=== PATIENT | female | born 2000 | race Caucasian/White ===

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

== ENCOUNTER → 2020-02-04 | Outpatient (CLI) | payer MEDICAID ==
--- NOTE | 2020-02-04 11:23 | Diagnostic Imaging Report ---
INDICATION: Palpable lumps, right breast. Sonographic interrogation of all 4 quadrants of the right breast and retroareolar region was performed. No sonographic abnormality is identified. No solid or cystic mass is detected. IMPRESSION: BI-RADS Category 1 No sonographic abnormality is identified. Due to patient's young age, mammography was not performed. Continued close clinical and self breast exams recommended to confirm stability of the areas of palpable abnormality. ACR BI-RADS Category 1: Negative. Result letter will be mailed to the patient. Note: At least 10% of breast cancer is not imaged by mammography. Dictated by: Dictated on workstation # [id number]
== END ==
LOC: RAD 09:56
PROVIDERS: ATTEND Surgery
DX: N63.10 Unspecified lump in the right breast, unspecified quadrant (principal)
CPT/HCPCS: 76641

== ENCOUNTER 2020-09-05 19:08 | Emergency (ER) | payer MEDICAID ==
[~2020-09-05] VITALS: Ht 177.8 cm; Wt 63.5 kg
[2020-09-05 19:26] LABS: BILIRUBIN,URINE NEGATIVE (NEGATIVE); CLARITY,URINE SL CLOUDY; COLOR,URINE YELLOW; GLUCOSE, URINE (UA) NEGATIVE (NEGATIVE); KETONES,URINE NEGATIVE (NEGATIVE); LEUKOCYTE ESTERASE ,URINE 3+ (NEGATIVE); NITRITE,URINE NEGATIVE (NEGATIVE); PROTEIN,URINE NEGATIVE (NEGATIVE)
--- NOTE | 2020-09-05 19:32 | ED GU-Female ---
General Chief Complaint: - Urinary Stated Complaint: LOWER BACK/KIDNEY PAIN Nursing Triage Note: c/o bilateral lower back pain x2 days. reports pain worse today x2hrs. c/o pain/burning after urination. Source: patient Exam Limitations: no limitations History of Present Illness Date Seen by Provider: Sep 05, 2020 Time Seen by Provider: 19:15 Initial Comments This is a well-appearing 19 yo female who presents to the ER with complaints of bilateral flank pain x2 days. States she was recently diagnosed with a slight UTI and given prescription for Macrobid today. State she is concerned something more severe is occurring. Denies fever, chills, cough, shortness of breath, vomiting, abdominal pain. Has some slight nausea. LMP several months ago, currently on DEPO inj. Allergies and Home Medications Allergies Coded Allergies: No Known Drug Allergies (Unverified , 11/10/16) Patient Home Medication List Home Medication List Reviewed: Yes Review of Systems Review of Systems Constitutional: no symptoms reported EENTM: no symptoms reported Respiratory: no symptoms reported Cardiovascular: no symptoms reported Gastrointestinal: see HPI Genitourinary: see HPI : No Musculoskeletal: no symptoms reported Skin: no symptoms reported Psychiatric/Neurological: No Symptoms Reported Endocrine: No Symptoms Reported Hematologic/Lymphatic: No Symptoms Reported Past Pbrrios-Ctqjgd-Cvnnbd Hx Patient Social History Alcohol Use: Denies Use Number of Drinks Today: AA Alcohol Beverage of Choice: Beer Type Used: Electronic/Vapor 2nd Hand Smoke Exposure: No Recent Infectious Disease Expo: No Recent Hopitalizations: No Immunizations Up To Date Tetanus Booster (TDap): Less than 5yrs PED Vaccines UTD: Yes Seasonal Allergies Seasonal Allergies: Yes Past Medical History Surgeries: Yes (DENTAL) Adenoidectomy, Ear Surgery, Tonsillectomy Respiratory: No Cardiac: Yes High Cholesterol Neurological: No Reproductive Disorders: No Genitourinary: No Gastrointestinal: No Musculoskeletal: No Endocrine: No HEENT: No Cancer: No Psychosocial: Yes Anxiety Integumentary: No Blood Disorders: Yes (positive IVA screen) Family Medical History No Pertinent Family Hx, DVT/PE Physical Exam Vital Signs Vital Signs - First Documented 09/05/20 19:13 Temp 37.0 Pulse 93 Resp 18 B/P (MAP) 115/78 O2 Delivery Room Air Capillary Refill : Height, Weight, BMI Height: 5'9.00" Weight: 150lbs. 6.0oz. 68.729303vm; 20.00 BMI Method:Stated General Appearance: WD/WN, no apparent distress HEENT: PERRL/EOMI, normal ENT inspection Neck: full range of motion, normal inspection Cardiovascular: regular rate, rhythm, no murmur Respiratory: lungs clear, normal breath sounds Gastrointestinal: normal bowel sounds, non tender, soft; No hernia Back: CVA tenderness (R), CVA tenderness (L) Extremities: normal range of motion, non-tender, normal inspection, normal capillary refill Neurologic/Psychiatric: no motor/sensory deficits, alert, normal mood/affect, oriented x 3 Skin: normal color, warm/dry Progress/Results/Core Measures Suspected Sepsis SIRS Temperature: Pulse: Respiratory Rate: Laboratory Tests 09/05/20 20:02: White Blood Count 10.3 Blood Pressure / Mean: Laboratory Tests 09/05/20 20:02: Creatinine 0.84, Platelet Count 227, Total Bilirubin 0.4 Results/Orders Lab Results Laboratory Tests Test 09/05/20 19:16 09/05/20 20:02 Range/Units Urine Color YELLOW Urine Clarity SL CLOUDY Urine pH 7.0 5-9 Urine Specific [place] 1.015 L 1.016-1.022 Urine Protein NEGATIVE NEGATIVE Urine Glucose (UA) NEGATIVE NEGATIVE Urine Ketones NEGATIVE NEGATIVE Urine Nitrite NEGATIVE NEGATIVE Urine Bilirubin NEGATIVE NEGATIVE Urine Urobilinogen 0.2 < = 1.0 MG/DL Urine Leukocyte Esterase 3+ H NEGATIVE Urine RBC (Auto) 1+ H NEGATIVE Urine RBC 2-5 H /HPF Urine WBC 10-25 H /HPF Urine Squamous Epithelial Cells 0-2 /HPF Urine Crystals NONE /LPF Urine Bacteria TRACE /HPF Urine Casts NONE /LPF Urine Mucus NEGATIVE /LPF Urine Culture Indicated YES White Blood Count 10.3 4.3-11.0 10^3/uL Red Blood Count 4.60 3.80-5.11 10^6/uL Hemoglobin 13.7 11.5-16.0 g/dL Hematocrit 41 35-52 % Mean Corpuscular Volume 88 80-99 fL Mean Corpuscular Hemoglobin 30 25-34 pg Mean Corpuscular Hemoglobin Concent 34 32-36 g/dL Red Cell Distribution Width 12.7 10.0-14.5 % Platelet Count 227 130-400 10^3/uL Mean Platelet Volume 9.9 9.0-12.2 fL Immature Granulocyte % (Auto) 0 % Neutrophils (%) (Auto) 62 42-75 % Lymphocytes (%) (Auto) 28 12-44 % Monocytes (%) (Auto) 9 0-12 % Eosinophils (%) (Auto) 1 0-10 % Basophils (%) (Auto) 0 0-10 % Neutrophils # (Auto) 6.3 1.8-7.8 10^3/uL Lymphocytes # (Auto) 2.8 1.0-4.0 10^3/uL Monocytes # (Auto) 0.9 0.0-1.0 10^3/uL Eosinophils # (Auto) 0.1 0.0-0.3 10^3/uL Basophils # (Auto) 0.0 0.0-0.1 10^3/uL Immature Granulocyte # (Auto) 0.0 0.0-0.1 10^3/uL Sodium Level 139 135-145 MMOL/L Potassium Level 3.5 L 3.6-5.0 MMOL/L Chloride Level 108 H 98-107 MMOL/L Carbon Dioxide Level 23 21-32 MMOL/L Anion Gap 8 5-14 MMOL/L Blood Urea Nitrogen 10 7-18 MG/DL Creatinine 0.84 0.60-1.30 MG/DL Estimat Glomerular Filtration Rate > 60 BUN/Creatinine Ratio 12 Glucose Level 98 70-105 MG/DL Calcium Level 9.0 8.5-10.1 MG/DL Corrected Calcium 8.6 8.5-10.1 MG/DL Total Bilirubin 0.4 0.1-1.0 MG/DL Aspartate Amino Transf (AST/SGOT) 18 5-34 U/L Alanine Aminotransferase (ALT/SGPT) 25 0-55 U/L Alkaline Phosphatase 43 40-136 U/L Total Protein 7.3 6.4-8.2 GM/DL Albumin 4.5 3.2-4.5 GM/DL Micro Results Microbiology 09/05/20 Urine Culture - Final, Complete Gram Pos Mixed Bacterial Arabella My Orders Orders - CARLOS A HAWKINS TRAINING AND DEVELOPMENT SPECIALIST Ua Culture If Indicated (09/05/20 19:09) Urine Bedside (09/05/20 19:09) Ed Iv/Invasive Line Start (09/05/20 19:29) Cbc With Automated Diff (09/05/20 19:29) Comprehensive Metabolic Panel (09/05/20 19:29) Ct Abdomen/Pelvis Wo (09/05/20 19:29) Ketorolac Injection (Toradol Injection) (09/05/20 19:30) Urine Culture (09/05/20 19:16) Ceftriaxone For Im Use (Rocephin For Im (09/05/20 20:15) Lidocaine 1% Inj 20 Ml (Xylocaine 1% Inj (09/05/20 20:15) Medications Given in ED Vital Signs/I&O Capillary Refill : Progress Note : Progress Note Pt. examined and in no acute distress. Based on history, this very well could represent a bilat. kidney infection. Bilat. kidney stones unlikely. Will order basic labs and CT abd/pelvis w/o contrast. Orders given for Toradol IV, declined stating her pain is tolerable. UA indicative of UTI. CT abd/pelvis neg for acute findings. Given Rocephin 1gm inj. in ED and to continue antibiotics as previously directed. Reviewed discharge POC and she is agreeable with plan. Diagnostic Imaging Diagonstic Imaging: CT Plain Films/CT/US/NM/MRI: abdomen, pelvis Comments NAME: EKATERINA WALLACE John [facility] REC#: [id number] PT STATUS: REG ER : 2000 PHYSICIAN: CARLOS A HAWKINS TRAINING AND DEVELOPMENT SPECIALIST ADMIT DATE: 09/05/20/ER Signed Date of Exam:09/05/20 CT ABDOMEN/PELVIS WO PROCEDURE: CT abdomen and pelvis without contrast. TECHNIQUE: Multiple contiguous axial images were obtained through the abdomen and pelvis without the use of intravenous contrast. Auto Exposure Controls were utilized during the CT exam to meet ALARA standards for radiation dose reduction. INDICATION: Lower back pain for 2 days. Burning after urination. COMPARISON: 05/05/2019. FINDINGS: The heart is unremarkable. The lung bases are clear. The liver, spleen, pancreas, adrenal glands, and kidneys have a normal appearance. The gallbladder is decompressed. There is no pathologically enlarged mesenteric or retroperitoneal adenopathy. The bowel loops are nondilated. There is no free fluid or free air. No acute osseous abnormalities. The urinary bladder is nondistended. No bladder calculi are present. There is no free air, loculated collection, or adenopathy in the pelvis. IMPRESSION: 1. No acute abnormalities are seen in the abdomen and pelvis. No evidence of renal calculi or hydronephrosis. No bowel obstruction. No free fluid or free air. Dictated by: Dictated on workstation # [id number] Dict: 09/05/201947 Trans: 09/05/201958 [place] [id number] Interpreted by: NICKOLAS LOVE DO Electronically signed by: NICKOLAS LOVE DO 09/05/201958 Reviewed: Reviewed by Me Departure Impression Primary Impression: Urinary tract infection Disposition: 01 HOME, SELF-CARE Condition: Improved Departure-Patient Inst. Decision time for Depature: 20:28 Referrals: ION AVILA MD (PCP/Family) Primary Care Physician Patient Instructions: Urinary Tract Infection, Adult (DC) Add. Discharge Instructions: Plan: 1. Discharge home. 2. Drink plenty of water. 3. Take antibiotics as directed and complete full course as directed. 4. Tylenol/Ibuprofen as needed per package for pain. 5. Return to ER for any new or concerning symptoms. All discharge instructions reviewed with patient and/or family. Voiced understanding. CARLOS A HAWKINS TRAINING AND DEVELOPMENT SPECIALIST Sep 05, 2020 19:32
[2020-09-05 19:36] LABS: BACTERIA,URINE TRACE /HPF; SQUAMOUS EPITHELIAL CELL,UR 0-2 /HPF
[2020-09-05] MEDS: KETOROLAC 30 MG/ML VIAL IVP ONE ×2 (19:36→20:04)
--- NOTE | 2020-09-05 19:56 | Diagnostic Imaging Report ---
PROCEDURE: CT abdomen and pelvis without contrast. TECHNIQUE: Multiple contiguous axial images were obtained through the abdomen and pelvis without the use of intravenous contrast. Auto Exposure Controls were utilized during the CT exam to meet ALARA standards for radiation dose reduction. INDICATION: Lower back pain for 2 days. Burning after urination. COMPARISON: 05/05/2019. FINDINGS: The heart is unremarkable. The lung bases are clear. The liver, spleen, pancreas, adrenal glands, and kidneys have a normal appearance. The gallbladder is decompressed. There is no pathologically enlarged mesenteric or retroperitoneal adenopathy. The bowel loops are nondilated. There is no free fluid or free air. No acute osseous abnormalities. The urinary bladder is nondistended. No bladder calculi are present. There is no free air, loculated collection, or adenopathy in the pelvis. IMPRESSION: 1. No acute abnormalities are seen in the abdomen and pelvis. No evidence of renal calculi or hydronephrosis. No bowel obstruction. No free fluid or free air. Dictated by: Dictated on workstation # [id number]
[2020-09-05 20:08] LABS: BASOPHILS % (AUTO) 0 % (0-10); EOSINOPHILS # (AUTO) 0.1 10^3/uL (0.0-0.3); EOSINOPHILS % (AUTO) 1 % (0-10); HEMATOCRIT 41 % (35-52); HEMOGLOBIN 13.7 g/dL (11.5-16.0); LYMPHOCYTES # (AUTO) 2.8 10^3/uL (1.0-4.0); LYMPHOCYTES % (AUTO) 28 % (12-44); MEAN CORPUSCULAR HEMOGLOBIN 30 pg (25-34); MEAN CORPUSCULAR HGB CONC 34 g/dL (32-36); MEAN CORPUSCULAR VOLUME 88 fL (80-99); MEAN PLATELET VOLUME 9.9 fL (9.0-12.2); MONOCYTES # (AUTO) 0.9 10^3/uL (0.0-1.0); MONOCYTES % (AUTO) 9 % (0-12); NEUTROPHILS # (AUTO) 6.3 10^3/uL (1.8-7.8); NEUTROPHILS % (AUTO) 62 % (42-75); PLATELET COUNT 227 10^3/uL (130-400); WHITE BLOOD COUNT 10.3 10^3/uL (4.3-11.0)
[2020-09-05] MEDS ORDERED: cefTRIAXone 1,000 MG/2.86 ml vial (IM ONLY) IM ONE (20:15)
[2020-09-05] MEDS ORDERED: LIDOCAINE 1% INJ 20 ML 20 ML VIAL INJ ONE (20:15)
[2020-09-05 20:29] LABS: ALBUMIN 4.5 GM/DL (3.2-4.5); CHLORIDE 108 MMOL/L (98-107); POTASSIUM 3.5 MMOL/L (3.6-5.0); SODIUM 139 MMOL/L (135-145)
[2020-09-05 20:31] LABS: GLUCOSE 98 MG/DL (70-105); TOTAL PROTEIN 7.3 GM/DL (6.4-8.2)
[2020-09-05 20:32] LABS: CARBON DIOXIDE 23 MMOL/L (21-32)
[2020-09-05 20:33] LABS: BILIRUBIN,TOTAL 0.4 MG/DL (0.1-1.0)
[2020-09-05 20:35] LABS: ALKALINE PHOSPHATASE 43 U/L (40-136); CREATININE SERUM 0.84 MG/DL (0.60-1.30); GFR ESTIMATED > 60
[2020-09-05 20:36] LABS: BUN/CREATININE RATIO 12
[2020-09-05 20:38] LABS: ALANINE AMINOTRANSFERASE 25 U/L (0-55)
== END 2020-09-05 20:31 | disposition home or self-care (01) ==
LOC: EDUNIT# 19:08 → ER 19:09
DX: N39.0 Urinary tract infection, site not specified (principal)
CPT/HCPCS: 36415; 74176; 80053; 81000; 84703; 85025; 87088

== ENCOUNTER 2020-09-17 13:57 | Emergency (ER) | payer MEDICAID ==
[~2020-09-17] VITALS: Ht 177 cm; Wt 63.5 kg
--- NOTE | 2020-09-17 14:32 | ED General ---
General Chief Complaint: General Problems/Pain Stated Complaint: LOW BLOOD SUGAR Nursing Triage Note: Patient ambulatory to ER with c/o low blood sugar this morning. Pt states she felt like it was low but did not check it. She drank orange juice and states she then checked it and it read 116. She states she now has diarrhea. Nursing Sepsis Screen: No Definite Risk Source of Information: Patient Exam Limitations: No Limitations (LEANDRA SILVER,) History of Present Illness Date Seen by Provider: Sep 17, 2020 Time Seen by Provider: 14:27 Initial Comments Ms. Taveras is a 20-year-old female who presented to the [facility] ED for concerns regarding her blood sugar. She states this am around 11 she felt it "crashing" and after drinking an entire glass of OJ and some grapes, it did not increase past 116. She also was having blurred vision and generalized weakness at that time. She states her PCP has told her he believes she overproduces insulin but no formal diagnosis has been made. She denies fevers/chills, chest pain, shortness of breath, nausea, vomiting, difficulties with urination, new rashes. She does admit to headaches yesterday but that have now resolved. Patient also recently received antibiotics for UTI, symptoms have now resolved. Timing/Duration: 1 Day Severity: Mild (LEANDRA SILVER,) Timing/Duration: 1 Day, Other (Chronic for years but worse today) Severity: Mild Associated Systoms: No Cough, No Fever/Chills; Nausea/Vomiting; No Shortness of Air; Weakness (MIN SANCHEZ MD) Allergies and Home Medications Allergies Coded Allergies: No Known Drug Allergies (Unverified , 11/10/16) Patient Home Medication List Home Medication List Reviewed: Yes (LEANDRA SILVER,) Home Medication List Reviewed: Yes (MIN SANCHEZ MD) Review of Systems Review of Systems Constitutional: No fever; weakness EENTM: blurred vision Respiratory: No cough, No short of breath Cardiovascular: No chest pain Gastrointestinal: diarrhea; No nausea, No vomiting Genitourinary: No dysuria, No frequency Musculoskeletal: No joint pain, No muscle pain Skin: No dryness, No rash Psychiatric/Neurological: Anxiety, Headache Hematologic/Lymphatic: No Symptoms Reported Immunological/Allergic: no symptoms reported (LEANDRA SILVER,) Constitutional: No fever; weakness Respiratory: No cough, No short of breath Gastrointestinal: No abdominal pain; diarrhea, nausea; No vomiting Genitourinary: no symptoms reported Psychiatric/Neurological: Anxiety, Weakness (MIN SANCHEZ MD) All Other Systems Reviewed Negative Unless Noted: Yes (MIN SANCHEZ MD) Past Wtiklej-Zprqmz-Nprklc Hx Past Med/Social Hx: Reviewed Nursing Past Med/Soc Hx (MIN SANCHEZ MD) Patient Social History Alcohol Use: Occasionally Uses Number of Drinks Today: AA Alcohol Beverage of Choice: Beer Smoking Status: Current Everyday Smoker Type Used: Electronic/Vapor 2nd Hand Smoke Exposure: No Recent Infectious Disease Expo: No Recent Hopitalizations: No (LEANDRA SILVER) Immunizations Up To Date Tetanus Booster (TDap): Less than 5yrs PED Vaccines UTD: Yes (LEANDRA SILVER) Seasonal Allergies Seasonal Allergies: Yes (LEANDRA SILVER) Past Medical History Surgeries: Yes (DENTAL) Adenoidectomy, Ear Surgery, Tonsillectomy Respiratory: No Cardiac: Yes High Cholesterol Neurological: No Reproductive Disorders: No Genitourinary: No Gastrointestinal: No Musculoskeletal: No Endocrine: No HEENT: No Cancer: No Psychosocial: Yes Anxiety Integumentary: No Blood Disorders: Yes (positive IVA screen) (LEANDRA SILVER,) Family Medical History Reviewed Nursing Family Hx (MIN SANCHEZ MD) No Pertinent Family Hx, Heart Disease, Cancer, CAD Under 55 Years Old, DVT/PE, Diabetes (LEANDRA SILVER,) Physical Exam Vital Signs Vital Signs - First Documented 09/17/20 14:13 Temp 36.5 Pulse 75 Resp 16 B/P (MAP) 137/89 (105) Pulse Ox 99 O2 Delivery Room Air (MIN SANCHEZ MD) Vital Signs Capillary Refill : Less Than 3 Seconds (LEANDRA SILVER,) Height, Weight, BMI Height: 5'9.00" Weight: 150lbs. 6.0oz. 68.768890zt; 20.00 BMI Method:Stated General Appearance: No Apparent Distress, WD/WN, Anxious HEENT: PERRL/EOMI, Pharynx Normal Neck: Non Tender, Supple Respiratory: Lungs Clear, Normal Breath Sounds Cardiovascular: Regular Rate, Rhythm, No Murmur Gastrointestinal: Normal Bowel Sounds, Non Tender, Soft Extremity: Normal Capillary Refill, No Calf Tenderness Neurologic/Psychiatric: Alert, Normal Mood/Affect Skin: Normal Color, Warm/Dry (LEANDRA SILVER,) General Appearance: WD/WN, Anxious, Thin Respiratory: Lungs Clear, Normal Breath Sounds Cardiovascular: Regular Rate, Rhythm, No Murmur Gastrointestinal: Non Tender, Soft Neurologic/Psychiatric: Alert, Oriented x3, Normal Mood/Affect Skin: Normal Color, Warm/Dry (MIN SANCHEZ MD) Progress/Results/Core Measures Suspected Sepsis Recent Fever Within 48 Hours: No Infection Criteria Present: None New/Unexplained Altered Menta: No Sepsis Screen: No Definite Risk SIRS Temperature: Pulse: 75 Respiratory Rate: 16 Blood Pressure 137 /89 Mean: 105 (LEANDRA SILVER,) Results/Orders Lab Results Laboratory Tests Test 09/17/20 14:06 09/17/20 14:48 09/17/20 15:04 Range/Units Glucometer 101 70-110 MG/DL Urine Color YELLOW Urine Clarity CLEAR Urine pH 7.0 5-9 Urine Specific [place] <=1.005 1.016-1.022 Urine Protein NEGATIVE NEGATIVE Urine Glucose (UA) NEGATIVE NEGATIVE Urine Ketones NEGATIVE NEGATIVE Urine Nitrite NEGATIVE NEGATIVE Urine Bilirubin NEGATIVE NEGATIVE Urine Urobilinogen 0.2 < = 1.0 MG/DL Urine Leukocyte Esterase NEGATIVE NEGATIVE Urine RBC (Auto) NEGATIVE NEGATIVE Urine RBC NONE /HPF Urine WBC NONE /HPF Urine Squamous Epithelial Cells 5-10 /HPF Urine Crystals NONE /LPF Urine Bacteria NEGATIVE /HPF Urine Casts NONE /LPF Urine Mucus NEGATIVE /LPF Urine Culture Indicated NO Urine Test NEGATIVE NEGATIVE White Blood Count 6.6 4.3-11.0 10^3/uL Red Blood Count 4.88 3.80-5.11 10^6/uL Hemoglobin 14.4 11.5-16.0 g/dL Hematocrit 43 35-52 % Mean Corpuscular Volume 87 80-99 fL Mean Corpuscular Hemoglobin 30 25-34 pg Mean Corpuscular Hemoglobin Concent 34 32-36 g/dL Red Cell Distribution Width 12.5 10.0-14.5 % Platelet Count 224 130-400 10^3/uL Mean Platelet Volume 10.2 9.0-12.2 fL Immature Granulocyte % (Auto) 0 % Neutrophils (%) (Auto) 72 42-75 % Lymphocytes (%) (Auto) 19 12-44 % Monocytes (%) (Auto) 8 0-12 % Eosinophils (%) (Auto) 0 0-10 % Basophils (%) (Auto) 1 0-10 % Neutrophils # (Auto) 4.7 1.8-7.8 10^3/uL Lymphocytes # (Auto) 1.3 1.0-4.0 10^3/uL Monocytes # (Auto) 0.5 0.0-1.0 10^3/uL Eosinophils # (Auto) 0.0 0.0-0.3 10^3/uL Basophils # (Auto) 0.0 0.0-0.1 10^3/uL Immature Granulocyte # (Auto) 0.0 0.0-0.1 10^3/uL Sodium Level 141 135-145 MMOL/L Potassium Level 4.2 3.6-5.0 MMOL/L Chloride Level 110 H 98-107 MMOL/L Carbon Dioxide Level 21 21-32 MMOL/L Anion Gap 10 5-14 MMOL/L Blood Urea Nitrogen 10 7-18 MG/DL Creatinine 0.80 0.60-1.30 MG/DL Estimat Glomerular Filtration Rate > 60 BUN/Creatinine Ratio 13 Glucose Level 99 70-105 MG/DL Calcium Level 9.5 8.5-10.1 MG/DL Corrected Calcium 9.1 8.5-10.1 MG/DL Total Bilirubin 0.6 0.1-1.0 MG/DL Aspartate Amino Transf (AST/SGOT) 15 5-34 U/L Alanine Aminotransferase (ALT/SGPT) 18 0-55 U/L Alkaline Phosphatase 43 40-136 U/L Total Protein 7.2 6.4-8.2 GM/DL Albumin 4.5 3.2-4.5 GM/DL Thyroid Stimulating Hormone (TSH) 1.19 0.35-4.94 UIU/ML (MIN SANCHEZ MD) My Orders Orders - MIN SANCHEZ MD Cbc With Automated Diff (09/17/20 14:25) Comprehensive Metabolic Panel (09/17/20 14:25) Hcg,Qualitative Urine (09/17/20 14:25) Thyroid Stimulating Hormone (09/17/20 14:25) Ua Culture If Indicated (09/17/20 14:25) Ondansetron Oral Dissolve Tab (Zofran (09/17/20 15:15) General/Regular (09/17/20 Lunch) (MIN SANCHEZ MD) Vital Signs/I&O 09/17/20 14:13 Temp 36.5 Pulse 75 Resp 16 B/P (MAP) 137/89 (105) Pulse Ox 99 O2 Delivery Room Air (MIN SANCHEZ MD) Vital Signs/I&O Capillary Refill : Less Than 3 Seconds (LEANDRA SILVER,) Blood Pressure Mean: 105 Progress Note : Time: 14:31 Progress Note Glucometer showed bG of 101. Will order basic labs to further evaluate patient along with U/A and urine test. (LEANDRA SILVER,) Progress Note : Progress Note I have seen and evaluated the patient and agree with above except as indicated. I have directed the plan of care. Patient is here with concerns of hypoglycemia. This has been a longstanding problem that she has not had to do anything about other than eat. States that she was nauseated this morning and did not feel like eating. She got real shaky and thought her blood sugar was going to be very low so she drank a glass of orange juice with 2 teaspoons of sugar added. This did help a little bit but her blood sugar did not get very high so she was concerned and came to the emergency department. Complains of nausea and intermittent diarrhea. She missed her Depo-Medrol shot by a few days and has not had that done yet. Does have history of high cholesterol that she does not follow with anybody for it yet and had early with her father at age 35. Denies chest pain or breathing problems. Evaluation as above. Plan as above. Zofran 4 mg p.o. and p.o. challenge after ordered. Monitor patient. 1608: Still has a little bit of nausea but did manage to eat a few bites. Labs do not show any significant abnormalities. I did anger control counselor her extensively regarding the need to follow-up for her cholesterol. I will send out prescription for some Zofran. Discharged home with return precautions. Patient verbalized understanding instructions and agreement with plan. (MIN SANCHEZ MD) Departure Impression Primary Impression: Nausea Additional Impression: Hypoglycemia Disposition: 01 HOME, SELF-CARE Condition: Improved Departure-Patient Inst. Decision time for Depature: 16:09 (MIN SANCHEZ MD) Referrals: ION AVILA MD (PCP/Family) Primary Care Physician Patient Instructions: Nausea and Vomiting, Adult, Low Blood Sugar in People Without Diabetes Add. Discharge Instructions: All discharge instructions reviewed with patient and/or family. Voiced understanding. Eat small meals frequently. Drink plenty of fluids. Follow-up with your doctor for recheck and further evaluation including checking your cholesterol level to see if that needs to be treated due to your significant family history. This is very important for your health and safety so please get that done. Return for worse pain, fever, vomiting, weakness, breathing problems or other concerns as needed. Scripts Ondansetron (Ondansetron Odt) 4 Mg Tab.rapdis 4 MG PO Q6H PRN for NAUSEA/VOMITING, #12 TAB 0 Refills Prov: MIN SANCHEZ MD 09/17/20 Copy Copies To 1: ION AVILA MD, LAUREN, Sep 17, 2020 14:32 MIN SANCHEZ MD Sep 17, 2020 15:33
[2020-09-17 14:55] LABS: BILIRUBIN,URINE NEGATIVE (NEGATIVE); CLARITY,URINE CLEAR; COLOR,URINE YELLOW; GLUCOSE, URINE (UA) NEGATIVE (NEGATIVE); KETONES,URINE NEGATIVE (NEGATIVE); LEUKOCYTE ESTERASE ,URINE NEGATIVE (NEGATIVE); NITRITE,URINE NEGATIVE (NEGATIVE); PROTEIN,URINE NEGATIVE (NEGATIVE)
[2020-09-17 15:01] LABS: BACTERIA,URINE NEGATIVE /HPF
[2020-09-17 15:11] LABS: BASOPHILS % (AUTO) 1 % (0-10); EOSINOPHILS % (AUTO) 0 % (0-10); HEMATOCRIT 43 % (35-52); HEMOGLOBIN 14.4 g/dL (11.5-16.0); LYMPHOCYTES # (AUTO) 1.3 10^3/uL (1.0-4.0); LYMPHOCYTES % (AUTO) 19 % (12-44); MEAN CORPUSCULAR HEMOGLOBIN 30 pg (25-34); MEAN CORPUSCULAR HGB CONC 34 g/dL (32-36); MEAN CORPUSCULAR VOLUME 87 fL (80-99); MEAN PLATELET VOLUME 10.2 fL (9.0-12.2); MONOCYTES # (AUTO) 0.5 10^3/uL (0.0-1.0); MONOCYTES % (AUTO) 8 % (0-12); NEUTROPHILS # (AUTO) 4.7 10^3/uL (1.8-7.8); NEUTROPHILS % (AUTO) 72 % (42-75); PLATELET COUNT 224 10^3/uL (130-400); WHITE BLOOD COUNT 6.6 10^3/uL (4.3-11.0)
[2020-09-17] MEDS ORDERED: ONDANSETRON 4 MG (ZOFRAN) ORAL DISSOLVE TAB SL STA (15:15)
[2020-09-17 15:20] LABS: ALBUMIN 4.5 GM/DL (3.2-4.5); CHLORIDE 110 MMOL/L (98-107); POTASSIUM 4.2 MMOL/L (3.6-5.0); SODIUM 141 MMOL/L (135-145)
[2020-09-17 15:22] LABS: CALCIUM 9.5 MG/DL (8.5-10.1)
[2020-09-17 15:23] LABS: GLUCOSE 99 MG/DL (70-105); TOTAL PROTEIN 7.2 GM/DL (6.4-8.2)
[2020-09-17 15:24] LABS: BILIRUBIN,TOTAL 0.6 MG/DL (0.1-1.0); CARBON DIOXIDE 21 MMOL/L (21-32)
[2020-09-17 15:26] LABS: ALKALINE PHOSPHATASE 43 U/L (40-136); GFR ESTIMATED > 60
[2020-09-17 15:27] LABS: BUN/CREATININE RATIO 13
[2020-09-17 15:29] LABS: ALANINE AMINOTRANSFERASE 18 U/L (0-55)
[2020-09-17] MEDS ORDERED: ONDA4TAB11 PO (16:11)
[2020-09-17 16:20] VITALS: BP 137/89
== END 2020-09-17 16:21 | disposition home or self-care (01) ==
LOC: EDUNIT# 13:57 → ER 14:00
DX: R11.2 Nausea with vomiting, unspecified (principal); E16.2 Hypoglycemia, unspecified; I10 Essential (primary) hypertension; F17.290 Nicotine dependence, other tobacco product, uncomplicated; Z83.3 Family history of diabetes mellitus; Z82.49 Family history of ischemic heart disease and other diseases of the circulatory system; Z80.9 Family history of malignant neoplasm, unspecified
CPT/HCPCS: 36415; 80053; 81000; 82962; 84443; 84703; 85025; 99283

== ENCOUNTER 2020-12-09 21:27 | Emergency (ER) | payer MEDICAID ==
[~2020-12-09] VITALS: Ht 178 cm; Wt 63.0 kg
[2020-12-09] MEDS ORDERED: ASPIRIN 81 MG CHEW (CHILDREN'S ASA) PO ONE (22:00)
[2020-12-09 22:01] LABS: BASOPHILS % (AUTO) 1 % (0-10); EOSINOPHILS # (AUTO) 0.1 10^3/uL (0.0-0.3); EOSINOPHILS % (AUTO) 2 % (0-10); HEMATOCRIT 43 % (35-52); HEMOGLOBIN 14.4 g/dL (11.5-16.0); LYMPHOCYTES # (AUTO) 2.6 10^3/uL (1.0-4.0); LYMPHOCYTES % (AUTO) 39 % (12-44); MEAN CORPUSCULAR HEMOGLOBIN 29 pg (25-34); MEAN CORPUSCULAR HGB CONC 34 g/dL (32-36); MEAN CORPUSCULAR VOLUME 86 fL (80-99); MEAN PLATELET VOLUME 10.4 fL (9.0-12.2); MONOCYTES # (AUTO) 0.7 10^3/uL (0.0-1.0); MONOCYTES % (AUTO) 10 % (0-12); NEUTROPHILS # (AUTO) 3.3 10^3/uL (1.8-7.8); NEUTROPHILS % (AUTO) 49 % (42-75); PLATELET COUNT 237 10^3/uL (130-400); WHITE BLOOD COUNT 6.7 10^3/uL (4.3-11.0)
--- NOTE | 2020-12-09 22:10 | ED Chest Pain ---
General Stated Complaint: CHEST PAIN/SOA Source: patient History of Present Illness Date Seen by Provider: Dec 09, 2020 Time Seen by Provider: 21:52 Initial Comments PT ARRIVES VIA POV FROM HOME WITH MALE C/O MID CHEST PAIN AND SHORTNESS OF BREATH SINCE Saturday12/06/20 STATES HER SYMPTOMS BEGAN "WHEN THEY MADE US START WEARING AN N-95 MASK AGAIN ALL THE TIME AT WORK"--WORKS AT [employer], WITH RECENT INCREASE IN COVID-19 CASES STATES SHORTNESS OF BREATH IS ALL THE TIME, AND CHEST PAIN COMES AND GOES STATES PAIN IS SHARP AND "IT'S LIKE REAL HEAVY" SYMPTOMS ARE WHEN SHE HAS TO WEAR ANY KIND OF MASK, AND WITH WALKING OR GOING UP AND DOWN STAIRS NO FEVER NO COUGH NO NAUSEA/VOMITING NO SWELLING IN LEGS/ FEET PT LATER STATES SHE WAS TESTED FOR COVID-19 AT WORK TODAY AND ALSO WENT TO [facility] TO GET TESTED FOR COVID-19, BUT STATES SHE WAS NOT SEEN AT [facility] PT HAS NOT HAD COVID-19 VACCINE PT DENIES ANY HISTORY OF CARDIAC OR RESPIRATORY PROBLEMS PT HAS NOT TAKEN ANYTHING FOR SYMPTOMS AT ANY TIME PT HAS NOT SOUGHT CARE UNTIL TONIGHT ( SATURDAY NIGHT) SYMPTOMS ARE NO DIFFERENT TONIGHT IN ANY WAY LMP 11/22/20--HAS BEEN OFF DEPO FOR SEVERAL MONTHS--LAST SHOT WAS LAST MAY, NO CONTROL PCP: DR. YAN Allergies and Home Medications Allergies Coded Allergies: No Known Drug Allergies (Unverified , 11/10/16) Home Medications Naproxen 500 Mg Tablet.dr, 500 MG PO BID Prescribed by: ABY RESENDEZ on 12/09/20 2301 Ondansetron 4 Mg Tab.rapdis, 4 MG PO Q6H PRN for NAUSEA/VOMITING Prescribed by: MIN SANCHEZ on 09/17/20 1611 Patient Home Medication List Home Medication List Reviewed: Yes Review of Systems Review of Systems Constitutional: no symptoms reported EENTM: No Symptoms Reported Respiratory: See HPI Cardiovascular: See HPI Gastrointestinal: No Symptoms Reported Genitourinary: No Symptoms Reported Musculoskeletal: no symptoms reported Skin: no symptoms reported Psychiatric/Neurological: No Symptoms Reported Endocrine: No Symptoms Reported Hematologic/Lymphatic: No Symptoms Reported Past Kdesofe-Hondlt-Sawryv Hx Past Med/Social Hx: Reviewed and Corrections made Patient Social History Alcohol Beverage of Choice: Beer Drug of Choice: DENIES Smoking Status: Current Everyday Smoker Type Used: Electronic/Vapor 2nd Hand Smoke Exposure: No Recent Hopitalizations: No Immunizations Up To Date Tetanus Booster (TDap): Less than 5yrs PED Vaccines UTD: Yes Seasonal Allergies Seasonal Allergies: Yes Past Medical History Surgeries: Yes (DENTAL/WISDOME TEETH; LEFT ACL REPAIR) Adenoidectomy, Ear Surgery, Orthopedic, Tonsillectomy Respiratory: No Cardiac: Yes (NO MEDICATIONS) High Cholesterol Neurological: No Reproductive Disorders: No Genitourinary: No Gastrointestinal: No Musculoskeletal: Yes (LEFT ACL REPAIR) Endocrine: No HEENT: No Cancer: No Psychosocial: Yes Anxiety Integumentary: No Blood Disorders: Yes (positive IVA screen) Family Medical History No Pertinent Family Hx, Heart Disease, Cancer, CAD Under 55 Years Old, DVT/PE, Diabetes Physical Exam Vital Signs Vital Signs - First Documented 12/09/20 22:11 Temp 36.7 Pulse 70 Resp 16 B/P (MAP) 124/84 (97) Pulse Ox 99 O2 Delivery Room Air Capillary Refill : Height, Weight, BMI Height: 5'9.00" Weight: 150lbs. 6.0oz. [id number]; 20.00 BMI Method:Stated General Appearance: No Apparent Distress, WD/WN, Other (FULL HEAVY MAKEUP AND THICK FALSE EYELASHES, WELL GROOMED. DOES NOT APPEAR TO BE IN ANY DISCOMFORT OR DISTRESS. ) HEENT: PERRL/EOMI, TMs Normal, Normal ENT Inspection, Pharynx Normal, Moist Mucous Membranes Neck: Full Range of Motion, Normal Inspection, Non Tender, Supple Respiratory: Normal Breath Sounds, No Accessory Muscle Use, No Respiratory Distress, Other (MID CHEST MILD TENDERNESS, PALPATION REPRODUCES PAIN ) Cardiovascular: Regular Rate, Rhythm, No Edema, No JVD, No Murmur, Normal Peripheral Pulses Gastrointestinal: Non Tender, Soft Extremity: Normal Capillary Refill, Normal Inspection, Normal Range of Motion, Non Tender, No Calf Tenderness, No Pedal Edema Neurologic/Psychiatric: Alert, Oriented x3, No Motor/Sensory Deficits, Normal Mood/Affect, crisis clinician II-XII Norm as Tested Skin: Normal Color Progress/Results/Core Measures Results/Orders Lab Results Laboratory Tests Test 12/09/20 21:42 12/09/20 22:06 12/09/20 22:17 Range/Units White Blood Count 6.7 4.3-11.0 10^3/uL Red Blood Count 4.94 3.80-5.11 10^6/uL Hemoglobin 14.4 11.5-16.0 g/dL Hematocrit 43 35-52 % Mean Corpuscular Volume 86 80-99 fL Mean Corpuscular Hemoglobin 29 25-34 pg Mean Corpuscular Hemoglobin Concent 34 32-36 g/dL Red Cell Distribution Width 12.4 10.0-14.5 % Platelet Count 237 130-400 10^3/uL Mean Platelet Volume 10.4 9.0-12.2 fL Immature Granulocyte % (Auto) 0 % Neutrophils (%) (Auto) 49 42-75 % Lymphocytes (%) (Auto) 39 12-44 % Monocytes (%) (Auto) 10 0-12 % Eosinophils (%) (Auto) 2 0-10 % Basophils (%) (Auto) 1 0-10 % Neutrophils # (Auto) 3.3 1.8-7.8 10^3/uL Lymphocytes # (Auto) 2.6 1.0-4.0 10^3/uL Monocytes # (Auto) 0.7 0.0-1.0 10^3/uL Eosinophils # (Auto) 0.1 0.0-0.3 10^3/uL Basophils # (Auto) 0.0 0.0-0.1 10^3/uL Immature Granulocyte # (Auto) 0.0 0.0-0.1 10^3/uL Sodium Level 140 135-145 MMOL/L Potassium Level 3.7 3.6-5.0 MMOL/L Chloride Level 107 98-107 MMOL/L Carbon Dioxide Level 26 21-32 MMOL/L Anion Gap 7 5-14 MMOL/L Blood Urea Nitrogen 11 7-18 MG/DL Creatinine 0.83 0.60-1.30 MG/DL Estimat Glomerular Filtration Rate > 60 BUN/Creatinine Ratio 13 Glucose Level 97 70-105 MG/DL Calcium Level 9.4 8.5-10.1 MG/DL Corrected Calcium 9.2 8.5-10.1 MG/DL Magnesium Level 2.2 1.6-2.4 MG/DL Total Bilirubin 0.4 0.1-1.0 MG/DL Aspartate Amino Transf (AST/SGOT) 28 5-34 U/L Alanine Aminotransferase (ALT/SGPT) 55 0-55 U/L Alkaline Phosphatase 48 40-136 U/L Troponin I < 0.028 <0.028 NG/ML B-Type Natriuretic Peptide 12.0 <100.0 PG/ML Total Protein 7.1 6.4-8.2 GM/DL Albumin 4.2 3.2-4.5 GM/DL Serum Alcohol 14 H <10 MG/DL Influenza Type A (RT-PCR) Not Detected Not Detecte Influenza Type B (RT-PCR) Not Detected Not Detecte SARS-CoV-2 RNA (RT-PCR) Not Detected Not Detecte Urine Color YELLOW Urine Clarity SL CLOUDY Urine pH 6.0 5-9 Urine Specific [place] 1.020 1.016-1.022 Urine Protein NEGATIVE NEGATIVE Urine Glucose (UA) NEGATIVE NEGATIVE Urine Ketones NEGATIVE NEGATIVE Urine Nitrite NEGATIVE NEGATIVE Urine Bilirubin NEGATIVE NEGATIVE Urine Urobilinogen 0.2 < = 1.0 MG/DL Urine Leukocyte Esterase NEGATIVE NEGATIVE Urine RBC (Auto) NEGATIVE NEGATIVE Urine RBC NONE /HPF Urine WBC 0-2 /HPF Urine Squamous Epithelial Cells 5-10 /HPF Urine Crystals NONE /LPF Urine Bacteria TRACE /HPF Urine Casts NONE /LPF Urine Mucus NEGATIVE /LPF Urine Culture Indicated NO Urine Opiates Screen NEGATIVE NEGATIVE Urine Oxycodone Screen NEGATIVE NEGATIVE Urine Methadone Screen NEGATIVE NEGATIVE Urine Propoxyphene Screen NEGATIVE NEGATIVE Urine Barbiturates Screen NEGATIVE NEGATIVE Ur Tricyclic Antidepressants Screen NEGATIVE NEGATIVE Urine Phencyclidine Screen NEGATIVE NEGATIVE Urine Amphetamines Screen NEGATIVE NEGATIVE Urine Methamphetamines Screen NEGATIVE NEGATIVE Urine Benzodiazepines Screen NEGATIVE NEGATIVE Urine Cocaine Screen NEGATIVE NEGATIVE Urine Cannabinoids Screen NEGATIVE NEGATIVE My Orders Orders - ABY RESENDEZ DO Ed Iv/Invasive Line Start (12/09/20 21:50) Urine Bedside (12/09/20 21:50) Ekg Tracing (12/09/20 21:50) Monitor-Rhythm Ecg Trace Only (12/09/20 21:50) Alcohol (12/09/20 21:50) BNP (12/09/20 21:50) Cbc With Automated Diff (12/09/20 21:50) Comprehensive Metabolic Panel (12/09/20 21:50) Drug Screen Stat (Urine) (12/09/20 21:50) Magnesium (12/09/20 21:50) Ua Culture If Indicated (12/09/20 21:50) Troponin I (12/09/20 21:50) Chest 1 View, Ap/Pa Only (12/09/20 21:50) Ed Iv/Invasive Line Start (12/09/20 21:50) Aspirin Chewable Tablet (Baby Aspirin Ch (12/09/20 22:00) Covid 19 Inhouse Test (12/09/20 21:50) Influenza A And B By Pcr (12/09/20 21:50) Rx-Naproxen (Rx-Naprosyn) (12/09/20 23:01) Medications Given in ED Vital Signs/I&O 12/09/20 12/09/20 12/09/20 22:11 22:11 23:07 Temp 36.7 Pulse 70 64 Resp 16 16 B/P (MAP) 124/84 (97) 118/70 Pulse Ox 99 99 O2 Delivery Room Air Room Air Room Air Progress Progress Note : Progress Note UNEVENTFUL ER STAY NO CHEST PAIN NO DYSPNEA NO HYPOXIA VITALS STABLE Initial ECG Impression Date: Dec 09, 2020 Initial ECG Impression Time: 21:52 Initial ECG Rate: 65 Initial ECG Rhythm: Normal Sinus Diagnostic Imaging Comments CXR--NO ACUTE PROCESS, PENDING RADIOLOGIST REVIEW Reviewed: Reviewed by Me Departure Impression Primary Impression: Chest wall pain Additional Impression: SUBJECTIVE DYSPNEA Disposition: 01 HOME, SELF-CARE Condition: Stable Departure-Patient Inst. Decision time for Depature: 22:55 Referrals: ION AVILA MD (PCP/Family) Primary Care Physician Patient Instructions: Costochondritis (DC), Shortness of Breath (Dyspnea) (DC) Add. Discharge Instructions: FOLLOW UP WITH YOUR DR NEXT WEEK FOR FURTHER CARE Scripts Naproxen (Naproxen) 500 Mg Tablet. 500 MG PO BID, #20 TAB Prov: ABY RESENDEZ DO 12/09/20 ABY RESENDEZ DO Dec 09, 2020 22:10
[2020-12-09 22:15] LABS: ALANINE AMINOTRANSFERASE 55 U/L (0-55); ALBUMIN 4.2 GM/DL (3.2-4.5); ALKALINE PHOSPHATASE 48 U/L (40-136); BILIRUBIN,TOTAL 0.4 MG/DL (0.1-1.0); BUN/CREATININE RATIO 13; CALCIUM 9.4 MG/DL (8.5-10.1); CARBON DIOXIDE 26 MMOL/L (21-32); CHLORIDE 107 MMOL/L (98-107); CREATININE SERUM 0.83 MG/DL (0.60-1.30); GFR ESTIMATED > 60; GLUCOSE 97 MG/DL (70-105); MAGNESIUM 2.2 MG/DL (1.6-2.4); POTASSIUM 3.7 MMOL/L (3.6-5.0); SODIUM 140 MMOL/L (135-145); TOTAL PROTEIN 7.1 GM/DL (6.4-8.2)
[2020-12-09 22:22] LABS: BILIRUBIN,URINE NEGATIVE (NEGATIVE); CLARITY,URINE SL CLOUDY; COLOR,URINE YELLOW; GLUCOSE, URINE (UA) NEGATIVE (NEGATIVE); KETONES,URINE NEGATIVE (NEGATIVE); LEUKOCYTE ESTERASE ,URINE NEGATIVE (NEGATIVE); NITRITE,URINE NEGATIVE (NEGATIVE); PROTEIN,URINE NEGATIVE (NEGATIVE)
[2020-12-09 22:42] LABS: AMPHETAMINE SCREEN, URINE NEGATIVE (NEGATIVE); BARBITURATE SCREEN URINE NEGATIVE (NEGATIVE); BENZODIAZEPINES SCREEN URINE NEGATIVE (NEGATIVE); CANNABINOID SCREEN, URINE NEGATIVE (NEGATIVE); COCAINE SCREEN URINE NEGATIVE (NEGATIVE); METHADONE STAT NEGATIVE (NEGATIVE); METHAMPHETAMINE SCREEN URINE S NEGATIVE (NEGATIVE); OPIATE SCREEN URINE NEGATIVE (NEGATIVE); OXYCODONE STAT NEGATIVE (NEGATIVE); PROPOXYPHENE STAT NEGATIVE (NEGATIVE); TRICYCLIC ANTIDEPRESSANTS SCRE NEGATIVE (NEGATIVE)
[2020-12-09 22:43] LABS: BACTERIA,URINE TRACE /HPF; WBC,URINE 0-2 /HPF
[2020-12-09] MEDS ORDERED: NAPR500T8 PO (23:01)
[2020-12-09] MEDS ORDERED: RX-NAPROXEN (NAPROSYN) 250 MG TAB PPK#4 PO STA (23:01)
[2020-12-09 23:07] VITALS: BP 118/70
--- NOTE | 2020-12-10 07:49 | Diagnostic Imaging Report ---
Indication: Chest pain. Time of exam: 10:51 PM Correlation is made with prior chest from 05/05/2019. The heart size is normal. The pulmonary vascularity is unremarkable. The lungs are clear. No infiltrate, effusion or pneumothorax is detected. Impression: No acute cardiopulmonary process is detected. Dictated by: Dictated on workstation # [id number]
== END 2020-12-09 23:08 | disposition home or self-care (01) ==
LOC: EDUNIT# 21:27 → ER 21:29
DX: R07.89 Other chest pain (principal); R06.00 Dyspnea, unspecified; Z20.822 Contact with and (suspected) exposure to COVID-19
CPT/HCPCS: 36415; 71045; 80053; 80306; 80320; 81000; 83735; 83880; 84484; 84703; 85025; 87636; 93005; 93041

== ENCOUNTER 2021-01-07 11:06 | Emergency (ER) | payer MEDICAID ==
[~2021-01-07 11:06] MED LIST changes: +NAPR500T8 PO
== END 2021-01-07 12:30 | disposition left against medical advice (07) ==
LOC: EDUNIT# 11:06 → ER 11:07
DX: S61.451A Open bite of right hand, initial encounter (principal); S81.851A Open bite, right lower leg, initial encounter; W54.0XXA Bitten by dog, initial encounter

== ENCOUNTER 2021-01-10 00:43 | Emergency (ER) | payer MEDICAID ==
[~2021-01-10] VITALS: Ht 177 cm; Wt 63.0 kg
[2021-01-10] MEDS ORDERED: ONDANSETRON 4 MG/2 ML (SDV) Z0FRAN IVP ONE (01:15)
[2021-01-10 01:26] LABS: ALBUMIN 4.4 GM/DL (3.2-4.5); BASOPHILS % (AUTO) 1 % (0-10); CHLORIDE 109 MMOL/L (98-107); EOSINOPHILS # (AUTO) 0.3 10^3/uL (0.0-0.3); EOSINOPHILS % (AUTO) 4 % (0-10); HEMATOCRIT 41 % (35-52); HEMOGLOBIN 13.9 g/dL (11.5-16.0); LYMPHOCYTES # (AUTO) 2.2 10^3/uL (1.0-4.0); LYMPHOCYTES % (AUTO) 25 % (12-44); MEAN CORPUSCULAR HEMOGLOBIN 29 pg (25-34); MEAN CORPUSCULAR HGB CONC 34 g/dL (32-36); MEAN CORPUSCULAR VOLUME 86 fL (80-99); MEAN PLATELET VOLUME 10.3 fL (9.0-12.2); MONOCYTES # (AUTO) 0.9 10^3/uL (0.0-1.0); MONOCYTES % (AUTO) 11 % (0-12); NEUTROPHILS # (AUTO) 5.3 10^3/uL (1.8-7.8); NEUTROPHILS % (AUTO) 60 % (42-75); PLATELET COUNT 240 10^3/uL (130-400); POTASSIUM 3.9 MMOL/L (3.6-5.0); SODIUM 142 MMOL/L (135-145); WHITE BLOOD COUNT 8.9 10^3/uL (4.3-11.0)
[2021-01-10 01:27] LABS: CALCIUM 9.6 MG/DL (8.5-10.1)
[2021-01-10 01:29] LABS: GLUCOSE 115 MG/DL (70-105); TOTAL PROTEIN 7.3 GM/DL (6.4-8.2)
[2021-01-10 01:30] LABS: BILIRUBIN,TOTAL 0.4 MG/DL (0.1-1.0); CARBON DIOXIDE 22 MMOL/L (21-32)
[2021-01-10] MEDS ORDERED: LACTATED RINGERS 1,000 ML IV ONE (01:30)
[2021-01-10 01:32] LABS: ALKALINE PHOSPHATASE 48 U/L (40-136); CREATININE SERUM 0.81 MG/DL (0.60-1.30); GFR ESTIMATED > 60
[2021-01-10 01:33] LABS: BUN/CREATININE RATIO 10
[2021-01-10 01:35] LABS: ALANINE AMINOTRANSFERASE 29 U/L (0-55)
[2021-01-10 01:49] LABS: BILIRUBIN,URINE NEGATIVE (NEGATIVE); CLARITY,URINE CLOUDY; COLOR,URINE YELLOW; GLUCOSE, URINE (UA) NEGATIVE (NEGATIVE); KETONES,URINE NEGATIVE (NEGATIVE); LEUKOCYTE ESTERASE ,URINE TRACE (NEGATIVE); NITRITE,URINE NEGATIVE (NEGATIVE); PROTEIN,URINE NEGATIVE (NEGATIVE)
[2021-01-10 01:59] LABS: BACTERIA,URINE FEW /HPF; RBC,URINE 25-50 /HPF
--- NOTE | 2021-01-10 03:08 | ED General ---
General Chief Complaint: Bite-Animal/Human/Insect Stated Complaint: BIT BY DOG ON 01.07.21,CHILLS,NAUSEA,LOVE,DIZZY Nursing Triage Note: PT PRESENTS TO THE ED C/O NAUSEA AND CHILLS THAT ONSET EARLIER TODAY. PT STATES SHE IS CURRENTLY ON ABX FOR DOG BITES SHE SUFFERED 72HRS AGO. Source of Information: Patient Exam Limitations: No Limitations History of Present Illness Date Seen by Provider: Jan 10, 2021 Time Seen by Provider: 01:00 Initial Comments This 20-year-old young lady presents to the emergency room with complaints of dog bite injuries to the right thigh and left hand. The dog was unknown to her but was captured by animal [employer] and is under quarantine. Rabies vaccination and IgG therapy therefore has not yet been pursued. Dog was not vaccinated to her knowledge. Late in the day today she developed nausea and chills. She had a Covid swab in the morning but was not symptomatic at that time. He feels somnolent. He took 1 sublingual Zofran at home. She is still nauseated. On Augmentin as prescribed by urgent care. She complains of generalized aching ev erywhere. Allergies and Home Medications Allergies Coded Allergies: No Known Drug Allergies (Unverified , 11/10/16) Home Medications Naproxen 500 Mg Tablet.dr, 500 MG PO BID Prescribed by: ABY RESENDEZ on 12/09/20 2301 Ondansetron 4 Mg Tab.rapdis, 4 MG PO Q6H PRN for NAUSEA/VOMITING Prescribed by: MIN SANCHEZ on 09/17/20 1611 Patient Home Medication List Home Medication List Reviewed: Yes Review of Systems Review of Systems Constitutional: see HPI EENTM: no symptoms reported Respiratory: no symptoms reported Cardiovascular: no symptoms reported Gastrointestinal: see HPI Genitourinary: no symptoms reported : No Musculoskeletal: see HPI Skin: see HPI Psychiatric/Neurological: No Symptoms Reported Hematologic/Lymphatic: No Symptoms Reported Immunological/Allergic: no symptoms reported Past Wrgyjff-Aedhia-Uczggl Hx Patient Social History Tobacco Use?: No Substance use?: No Immunizations Up To Date Tetanus Booster (TDap): Less than 5yrs PED Vaccines UTD: Yes Influenza Vaccine Up-to-Date: Yes; Up-to-Date Seasonal Allergies Seasonal Allergies: Yes Past Medical History Surgeries: Yes (DENTAL/WISDOME TEETH; LEFT ACL REPAIR) Adenoidectomy, Ear Surgery, Orthopedic, Tonsillectomy Respiratory: No Cardiac: Yes (NO MEDICATIONS) High Cholesterol Neurological: No Last Menstrual Period: Nov 22, 2020 Reproductive Disorders: No Genitourinary: No Gastrointestinal: No Musculoskeletal: Yes (LEFT ACL REPAIR) Endocrine: No HEENT: No Cancer: No Psychosocial: Yes Anxiety Integumentary: No Blood Disorders: Yes (positive IVA screen) Family Medical History No Pertinent Family Hx, Heart Disease, Cancer, CAD Under 55 Years Old, DVT/PE, Diabetes Physical Exam Vital Signs Vital Signs - First Documented 01/10/21 00:55 Temp 36.1 Pulse 71 Resp 20 B/P (MAP) 113/79 (90) Pulse Ox 100 O2 Delivery Room Air Capillary Refill : Less Than 3 Seconds Height, Weight, BMI Height: 5'9.00" Weight: 150lbs. 6.0oz. 68.234347qc; 20.00 BMI Method:Stated General Appearance: No Apparent Distress, WD/WN, Thin HEENT: PERRL/EOMI, Normal ENT Inspection, Pharynx Normal Neck: Normal Inspection Respiratory: Lungs Clear, Normal Breath Sounds, No Accessory Muscle Use Cardiovascular: Regular Rate, Rhythm, No Edema, No Murmur Gastrointestinal: Soft; No Distended; Tenderness (Generalized) Extremity: Normal Inspection, No Pedal Edema, Other (Contusion and sealed puncture wounds on the right thigh and left hand) Neurologic/Psychiatric: Alert, Oriented x3, No Motor/Sensory Deficits, Normal Mood/Affect, peripatologist II-XII Norm as Tested Skin: Normal Color, Warm/Dry, Ecchymosis, Other (See above) Progress/Results/Core Measures Suspected Sepsis SIRS Temperature: Pulse: 71 Respiratory Rate: 20 Laboratory Tests 01/10/21 01:05: White Blood Count 8.9 Blood Pressure 113 /79 Mean: 90 Laboratory Tests 01/10/21 01:05: Creatinine 0.81, Platelet Count 240, Total Bilirubin 0.4 Results/Orders Lab Results Laboratory Tests Test 01/10/21 01:05 01/10/21 01:41 01/10/21 02:20 Range/Units White Blood Count 8.9 4.3-11.0 10^3/uL Red Blood Count 4.72 3.80-5.11 10^6/uL Hemoglobin 13.9 11.5-16.0 g/dL Hematocrit 41 35-52 % Mean Corpuscular Volume 86 80-99 fL Mean Corpuscular Hemoglobin 29 25-34 pg Mean Corpuscular Hemoglobin Concent 34 32-36 g/dL Red Cell Distribution Width 12.3 10.0-14.5 % Platelet Count 240 130-400 10^3/uL Mean Platelet Volume 10.3 9.0-12.2 fL Immature Granulocyte % (Auto) 1 % Neutrophils (%) (Auto) 60 42-75 % Lymphocytes (%) (Auto) 25 12-44 % Monocytes (%) (Auto) 11 0-12 % Eosinophils (%) (Auto) 4 0-10 % Basophils (%) (Auto) 1 0-10 % Neutrophils # (Auto) 5.3 1.8-7.8 10^3/uL Lymphocytes # (Auto) 2.2 1.0-4.0 10^3/uL Monocytes # (Auto) 0.9 0.0-1.0 10^3/uL Eosinophils # (Auto) 0.3 0.0-0.3 10^3/uL Basophils # (Auto) 0.0 0.0-0.1 10^3/uL Immature Granulocyte # (Auto) 0.0 0.0-0.1 10^3/uL Percent Immature Platelet Fraction 2.9 0.0-7.6 % Sodium Level 142 135-145 MMOL/L Potassium Level 3.9 3.6-5.0 MMOL/L Chloride Level 109 H 98-107 MMOL/L Carbon Dioxide Level 22 21-32 MMOL/L Anion Gap 11 5-14 MMOL/L Blood Urea Nitrogen 8 7-18 MG/DL Creatinine 0.81 0.60-1.30 MG/DL Estimat Glomerular Filtration Rate > 60 BUN/Creatinine Ratio 10 Glucose Level 115 H 70-105 MG/DL Calcium Level 9.6 8.5-10.1 MG/DL Corrected Calcium 9.3 8.5-10.1 MG/DL Total Bilirubin 0.4 0.1-1.0 MG/DL Aspartate Amino Transf (AST/SGOT) 18 5-34 U/L Alanine Aminotransferase (ALT/SGPT) 29 0-55 U/L Alkaline Phosphatase 48 40-136 U/L C-Reactive Protein High Sensitivity 0.27 0.00-0.50 MG/DL Total Protein 7.3 6.4-8.2 GM/DL Albumin 4.4 3.2-4.5 GM/DL Lipase 55 8-78 U/L Serum Test, Qualitative NEGATIVE NEGATIVE Urine Color YELLOW Urine Clarity CLOUDY Urine pH 7.0 5-9 Urine Specific [place] 1.020 1.016-1.022 Urine Protein NEGATIVE NEGATIVE Urine Glucose (UA) NEGATIVE NEGATIVE Urine Ketones NEGATIVE NEGATIVE Urine Nitrite NEGATIVE NEGATIVE Urine Bilirubin NEGATIVE NEGATIVE Urine Urobilinogen 1.0 < = 1.0 MG/DL Urine Leukocyte Esterase TRACE H NEGATIVE Urine RBC (Auto) 3+ H NEGATIVE Urine RBC 25-50 H /HPF Urine WBC 2-5 /HPF Urine Squamous Epithelial Cells 2-5 /HPF Urine Crystals NONE /LPF Urine Bacteria FEW H /HPF Urine Casts NONE /LPF Urine Mucus NEGATIVE /LPF Urine Culture Indicated YES Influenza Type A (RT-PCR) Not Detected Not Detecte Influenza Type B (RT-PCR) Not Detected Not Detecte SARS-CoV-2 RNA (RT-PCR) Not Detected Not Detecte Micro Results Microbiology 01/10/21 Urine Culture - Final, Complete NO GROWTH My Orders Orders - ЕЛЕНА COELLO MD Cbc With Automated Diff (01/10/21 01:09) Comprehensive Metabolic Panel (01/10/21 01:09) Hs C Reactive Protein (01/10/21 01:09) Hcg,Qualitative Serum (01/10/21 01:09) Ed Iv/Invasive Line Start (01/10/21 01:09) Ondansetron Injection (Zofran Injectio (01/10/21 01:15) Lipase (01/10/21 01:16) Ua Culture If Indicated (01/10/21 01:16) Lactated Ringers (Lr 1000 Ml Iv Solution (01/10/21 01:30) Urine Culture (01/10/21 01:41) Covid 19 Inhouse Test (01/10/21 02:07) Influenza A And B By Pcr (01/10/21 02:07) Medications Given in ED Vital Signs/I&O 01/10/21 01/10/21 00:55 03:20 Temp 36.1 36.1 Pulse 71 71 Resp 20 20 B/P (MAP) 113/79 (90) 113/79 (90) Pulse Ox 100 100 O2 Delivery Room Air Capillary Refill : Less Than 3 Seconds Blood Pressure Mean: 90 Progress Note : Progress Note Work-up was unremarkable. Patient was given a liter of LR and Zofran was given for nausea. She has already received a tetanus shot. The dog is under surveillance in quarantine and rabies prophylaxis will be pending dog's behavior. She is to continue with Augmentin. Departure Impression Primary Impression: Dog bite Qualified Codes: W54.0XXA - Bitten by dog, initial encounter Additional Impressions: Nausea Myalgia Disposition: HOME, SELF-CARE Condition: Improved Departure-Patient Inst. Decision time for Depature: 03:07 Referrals: ION AVILA MD (PCP/Family) Primary Care Physician Patient Instructions: Animal Bites ED Add. Discharge Instructions: Start with clear liquids. Drink plenty of clear liquids to stay well-hydrated. Gradually advance your diet with small quantities of bland food as tolerated. You may take Tylenol (acetaminophen) and/or ibuprofen for pain. Stay in contact with animal control to determine if the behavior of the dog warrants rabies vaccination. Use Zofran as prescribed for nausea. Call with questions or concerns. Return to the ER if you have worsening symptoms. All discharge instructions reviewed with patient and/or family. Voiced understanding. ЕЛЕНА COELLO MD Jan 10, 2021 03:08
[2021-01-10 03:20] VITALS: BP 113/79
== END 2021-01-10 03:19 | disposition home or self-care (01) ==
LOC: EDUNIT# 00:43 → ER 00:48
DX: S71.151A Open bite, right thigh, initial encounter (principal); S61.452A Open bite of left hand, initial encounter; R11.0 Nausea; M79.10 Myalgia, unspecified site; Z20.822 Contact with and (suspected) exposure to COVID-19; W54.0XXA Bitten by dog, initial encounter
CPT/HCPCS: 36415; 80053; 81000; 83690; 84703; 85025; 86141; 87088; 87636

== ENCOUNTER → 2021-01-12 | Outpatient (CLI) | payer MEDICAID ==
--- NOTE | 2021-01-12 12:56 | Diagnostic Imaging Report ---
INDICATION: Dog bite, puncture wound. FINDINGS: Corresponding to the region of clinical complaint, there is some subcutaneous thickening and altered echotexture which may reflect some regional cellulitis. Otherwise, however, no elevated color Doppler blood flow and no fluid collection or drainable abscess is found. IMPRESSION: No abscess or drainable fluid collection. No sonographically appreciable foreign body. There is some subcutaneous distortion and swelling which may be from bruising and/or edema. No fluid collection. Dictated by: Dictated on workstation # [id number]
== END ==
LOC: RAD 11:14
PROVIDERS: ATTEND Pediatrics
DX: S81.851A Open bite, right lower leg, initial encounter (principal); W54.0XXA Bitten by dog, initial encounter
CPT/HCPCS: 76881

== ENCOUNTER 2021-04-10 16:15 | Emergency (ER) | payer MEDICAID ==
[~2021-04-10] VITALS: Ht 177.8 cm; Wt 68.0 kg
--- NOTE | 2021-04-10 16:50 | ED Cough/URI ---
General Chief Complaint: COVID19 Suspect/Confirmed Stated Complaint: COVID POSITIVE/SOB Nursing Triage Note: PT AMB TO [facility] 10 WITH COMPLAINT OF INCREASING SOA AND NUMB HANDS/FEET. STATES SHE FEELS SHE IS GOING TO PASS OUT. TESTED POSITIVE FOR COVID LAST SATURDAY. Source: patient Exam Limitations: no limitations History of Present Illness Date Seen by Provider: Apr 10, 2021 Time Seen by Provider: 16:21 Initial Comments 20-year-old female otherwise healthy coming in because she is Covid positive and now feeling more short of breath. 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 Shortly after her positive test she began having cough, shortness of breath, headache, congestion, and loss of taste and smell. Spouse and child now are positive as well. Is taking vitamins but no other medications. Try Tylenol for her headache which helps somewhat. Is drinking plenty of fluids. Allergies and Home Medications Allergies Coded Allergies: No Known Drug Allergies (Unverified , 11/10/16) Patient Home Medication List Home Medication List Reviewed: Yes Naproxen (Naproxen) 500 Mg Tablet.dr, 500 MG PO BID Prescribed by: ABY RESENDEZ on 12/09/20 2301 Ondansetron (Ondansetron Odt) 4 Mg Tab.rapdis, 4 MG PO Q6H PRN for NAUSEA/VOMITING Prescribed by: MIN SANCHEZ on 09/17/20 1611 [Depo Shot] , 1, (Reported) Entered as Reported by: GIOVANNY GARY on 05/26/15 2110 Review of Systems Review of Systems Constitutional: No chills, No fever EENTM: No blurred vision Respiratory: cough, short of breath Cardiovascular: No chest pain Gastrointestinal: No abdominal pain, No diarrhea, No nausea, No vomiting Genitourinary: no symptoms reported Musculoskeletal: no symptoms reported Skin: no symptoms reported Psychiatric/Neurological: No Symptoms Reported Hematologic/Lymphatic: No Symptoms Reported Immunological/Allergic: no symptoms reported All Other Systems Reviewed Negative Unless Noted: Yes Past Zdbdyvt-Keffqs-Pmscqy Hx Patient Social History Tobacco Use?: No Use of E-Cig and/or Vaping dev: Yes Substance use?: No Alcohol Use?: No Immunizations Up To Date Tetanus Booster (TDap): Less than 5yrs PED Vaccines UTD: Yes First/Initial COVID19 Vaccinat: NO Second COVID19 Vaccination Gerardo: NO Seasonal Allergies Seasonal Allergies: Yes Past Medical History Surgeries: Yes (DENTAL/WISDOME TEETH; LEFT ACL REPAIR) Adenoidectomy, Ear Surgery, Orthopedic, Tonsillectomy Respiratory: No Cardiac: Yes (NO MEDICATIONS) High Cholesterol Neurological: No Reproductive Disorders: No Genitourinary: No Gastrointestinal: No Musculoskeletal: Yes (LEFT ACL REPAIR) Endocrine: No HEENT: No Cancer: No Psychosocial: Yes Anxiety Integumentary: No Blood Disorders: Yes (positive IVA screen) Family Medical History No Pertinent Family Hx, Heart Disease, Cancer, CAD Under 55 Years Old, DVT/PE, Diabetes Physical Exam Vital Signs - First Documented 04/10/21 16:30 Temp 35.6 Pulse 68 Resp 22 B/P (MAP) 121/77 (92) Pulse Ox 100 O2 Delivery Room Air Capillary Refill : Less Than 3 Seconds Height: 5'9.00" Weight: 150lbs. 6.0oz. 68.033207nm; 21.00 BMI Method:Stated General Appearance: WD/WN, no apparent distress HEENT: PERRL/EOMI, normal ENT inspection, pharynx normal Neck: non-tender, full range of motion, supple, normal inspection Respiratory: chest non-tender, lungs clear, normal breath sounds, no respiratory distress, no accessory muscle use Cardiovascular: regular rate, rhythm, no edema, no murmur Gastrointestinal: normal bowel sounds, non tender, soft; No distended, No guarding, No rebound Extremities: normal range of motion, non-tender, normal inspection, no pedal edema, no calf tenderness, normal capillary refill Neurologic/Psychiatric: no motor/sensory deficits, alert, normal mood/affect Skin: normal color, warm/dry Lymphatic: no adenopathy Progress/Results/Core Measures Suspected Sepsis SIRS Temperature: Pulse: 68 Respiratory Rate: 22 Blood Pressure 121 /77 Mean: 92 Results/Orders Vital Signs/I&O 04/10/21 04/10/21 16:30 16:30 Temp 35.6 Pulse 68 Resp 22 B/P (MAP) 121/77 (92) Pulse Ox 100 O2 Delivery Room Air Room Air Capillary Refill : Less Than 3 Seconds Blood Pressure Mean: 92 Progress Note : Progress Note 20-year-old female with above history coming in Covid positive and now short of breath. ABCs were intact and vitals were stable on presentation. The patient was 100% on room air. I personally ambulated her around the room vigorously for about a minute oxygen saturation stayed at 99%. Clear lung sounds and she is breathing comfortably. She has no clinical signs of pneumonia. She is not tachycardic, low risk for PE, and is PERC negative. Overall, she is early in her course with Covid, and is having a mild case. I believe she is stable for discharge with outpatient follow-up. I recommended she buy a pulse oximeter at home and to come in if her oxygen is below 90%. She is agreeable to this and was discharged home Departure Impression Primary Impression: COVID-19 Disposition: 01 HOME, SELF-CARE Condition: Stable Departure-Patient Inst. Decision time for Depature: 16:49 Referrals: ION AVILA MD (PCP/Family) Primary Care Physician Patient Instructions: COVID-19 (DC) Add. Discharge Instructions: Please purchase a pulse oximeter that has a nice waveform that you can follow. If your oxygen is below 90% and you cannot get it to come up after resting then please call 911 or have someone immediately drive you to the ER. Unfortunately there are no medications at this time that would be helpful. Drink plenty of fluids, take ibuprofen or Tylenol for pain, and it is totally okay to continue to take your vitamins. If you have any other concerns we are here 14/01 for you to come back. JOES SHAH MD Apr 10, 2021 16:50
[2021-04-10 17:18] VITALS: BP 121/77
[2021-04-10] MEDS ORDERED: ALPR0.25 PO (20:51)
[2021-04-10] MEDS ORDERED: ESCI10TA PO (20:51)
== END 2021-04-10 17:15 | disposition home or self-care (01) ==
LOC: EDUNIT# 16:15 → ER 16:18
DX: U07.1 COVID-19 (principal)
CPT/HCPCS: 99281

== ENCOUNTER 2021-04-10 20:23 | Emergency (ER) | payer MEDICAID ==
[~2021-04-10] VITALS: Ht 177.8 cm; Wt 60.0 kg
--- NOTE | 2021-04-10 20:44 | ED Cough/URI ---
General Chief Complaint: COVID19 Suspect/Confirmed Stated Complaint: COVID POSITIVE - SOA O2 IN THE 80S Source: patient Exam Limitations: no limitations History of Present Illness Date Seen by Provider: Apr 10, 2021 Time Seen by Provider: 20:42 Initial Comments To ER with c/o soa and anxiety. She was here earlier today for the same with sats of 100% with exertion. She is covid positive for about 4 days. OTherwise healthy. Formerly took meds and they were not helpful. Timing/Duration: constant Severity/Quality: moderate Prior Episodes/Possible Cause: no prior episodes Associated Symptoms: cough Allergies and Home Medications Allergies Coded Allergies: No Known Drug Allergies (Unverified , 11/10/16) Patient Home Medication List Home Medication List Reviewed: Yes Naproxen (Naproxen) 500 Mg Tablet.dr, 500 MG PO BID Prescribed by: ABY RESENDEZ on 12/09/20 2301 Ondansetron (Ondansetron Odt) 4 Mg Tab.rapdis, 4 MG PO Q6H PRN for NAUSEA/VOMITING Prescribed by: MIN SANCHEZ on 09/17/20 1611 [Depo Shot] , 1, (Reported) Entered as Reported by: GIOVANNY GARY on 05/26/15 2110 Review of Systems Review of Systems Constitutional: see HPI EENTM: see HPI Respiratory: see HPI, short of breath Cardiovascular: no symptoms reported Genitourinary: no symptoms reported Past Ygvglap-Ieammc-Dpzqxx Hx Immunizations Up To Date Tetanus Booster (TDap): Less than 5yrs PED Vaccines UTD: Yes First/Initial COVID19 Vaccinat: NO Second COVID19 Vaccination Gerardo: NO Seasonal Allergies Seasonal Allergies: Yes Past Medical History Surgeries: Yes (DENTAL/WISDOME TEETH; LEFT ACL REPAIR) Adenoidectomy, Ear Surgery, Orthopedic, Tonsillectomy Respiratory: No Cardiac: Yes (NO MEDICATIONS) High Cholesterol Neurological: No Reproductive Disorders: No Genitourinary: No Gastrointestinal: No Musculoskeletal: Yes (LEFT ACL REPAIR) Endocrine: No HEENT: No Cancer: No Psychosocial: Yes Anxiety Integumentary: No Blood Disorders: Yes (positive IVA screen) Family Medical History No Pertinent Family Hx, Heart Disease, Cancer, CAD Under 55 Years Old, DVT/PE, Diabetes Physical Exam Capillary Refill : Height: 5'9.00" Weight: 150lbs. 6.0oz. 68.788581sn; 21.00 BMI Method:Stated General Appearance: WD/WN, no apparent distress, other (ANxious appearing, speaks in full sentences, no distress, HR 72, Sp02 100% room air. ) Eyes: Bilateral Eye Normal Inspection, Bilateral Eye PERRL, Bilateral Eye EOMI Neck: non-tender, full range of motion Respiratory: no respiratory distress, no accessory muscle use Gastrointestinal: normal bowel sounds, non tender, soft Neurologic/Psychiatric: alert, normal mood/affect, oriented x 3 Skin: normal color, warm/dry Progress/Results/Core Measures Suspected Sepsis SIRS Temperature: Pulse: Respiratory Rate: Blood Pressure / Mean: Results/Orders My Orders Orders - DIONI KNIGHT APRN Chest 1 View, Ap/Pa Only (04/10/21 20:38) Alprazolam Tablet (Xanax Tablet) (04/10/21 20:45) Vital Signs/I&O Capillary Refill : Departure Impression Primary Impression: COVID-19 Additional Impression: Anxiety about health Disposition: 01 HOME, SELF-CARE Condition: Stable Departure-Patient Inst. Decision time for Depature: 20:49 Referrals: ION AVILA MD (PCP/Family) Primary Care Physician Patient Instructions: COVID-19 ED, Anxiety, Adult ED Add. Discharge Instructions: 1. Return to ER for any concerns. Take medication as directed 2. All discharge instructions reviewed with patient and/or family. Voiced understanding. Scripts Alprazolam (Xanax) 0.25 Mg Tablet 0.25 MG PO BID PRN for ANXIETY, #6 TAB Prov: DIONI KNIGHT APRN 04/10/21 Escitalopram Oxalate (Lexapro) 10 Mg Tablet 10 MG PO DAILY, #14 TAB Prov: DIONI KNIGHT APRN 04/10/21 DIONI KNIGHT APRN Apr 10, 2021 20:44
[2021-04-10] MEDS ORDERED: ALPRAZolam 0.25 MG (XANAX) TAB PO ONE (20:45)
[2021-04-10] MEDS ORDERED: ESCI10TA PO (20:51)
[2021-04-10] MEDS ORDERED: ALPR0.25 PO (20:51)
[2021-04-10] MEDS ORDERED: RX-LORAZEPAM (ATIVAN) 0.5 MG TAB PPK#4 PO STA (21:25)
--- NOTE | 2021-04-10 21:43 | Diagnostic Imaging Report ---
INDICATION: covid, soa COMPARISON: 05/05/2019 FINDINGS: Single frontal view of the chest demonstrates normal heart size and pulmonary vascularity. The lungs are well aerated and clear. No large pleural effusion or pneumothorax is seen. The visualized osseous structures show no acute abnormalities. IMPRESSION: 1. No acute cardiopulmonary process. Dictated by: Dictated on workstation # [id number]
[2021-04-10 23:40] VITALS: BP 107/54
== END 2021-04-10 23:27 | disposition home or self-care (01) ==
LOC: EDUNIT# 20:23 → ER 20:25
DX: U07.1 COVID-19 (principal)
CPT/HCPCS: 71045; 93005

== ENCOUNTER 2021-09-06 22:26 | Emergency (ER) | payer MEDICAID ==
[~2021-09-06] VITALS: Ht 177.8 cm; Wt 68.3 kg
[~2021-09-06 22:26] MED LIST changes: +ALPR0.25 PO; +CYCL10TA25 PO; -CYCL10TA9 PO; +ESCI10TA PO
--- NOTE | 2021-09-06 23:09 | ED Chest Pain ---
General Chief Complaint: Cardiac/General Problems Stated Complaint: CHEST PAIN Nursing Triage Note: c/o of "heartburn" since saturday and "softball feeling in chest" today. admits has taken omeprazole and pepcid today. admits that her father at 35 from a heart attack and she has strong family history of PE. Denies nausea and emesis Source: patient Exam Limitations: no limitations (SUDHEER CHANG STUDENT) History of Present Illness Date Seen by Provider: Sep 06, 2021 Time Seen by Provider: 22:55 Initial Comments Patient is a 20 year old female who presents to the ED with significant other with complaints of "a softball sitting in my chest." She reports that the sym ptoms started on Saturday and were not associated with doing anything. She reports the chest discomfort to be constant and has tried over the counter prilosec, tums, gas x, and pepcid with no relief of symptoms. Reports eating and drinking worsen the pain. Describes the pain as a dull achy sensation and fullness from the lower throat down through the chest. Reports she's never had this pain before. Pain worsens with leaning forward as well. Nothing seems to make the pain better, but she hasn't tried any analgesics at home. Has been able eat and denies trouble with swallowing. Denies sour taste or metallic taste in back of throat after eating. Denies awakening from sleep with cough. Denies fevers, chills, SOB, dysuria, diarrhea, and headache. Timing/Duration: 4-5 days Severity/Quality: moderate, aching, dull, other (Softball on chest feeling) Location: substernal Radiation: no radiation Activities at Onset: none Modifying Factors: improves with breathing, improves with coughing, improves with eating, improves with palpation ASA po SIGNS SALES REPRESENTATIVE: No NTG SL SIGNS SALES REPRESENTATIVE: No Associated Symptoms: No back pain, No diaphoresis, No fatigue, No fever/chills, No headache, No heartburn, No nausea/vomiting, No rash, No shortness of breath (SUDHEER CHANG MED STUDENT) Initial Comments 20 yo female with 4-5 days of substernal constant chest discomfort. Has taken multiple OTC GI remedies without relief. No tylenol or ibuprofen. tried Rx omeprazole prescribed by [facility] without relief. Laying flat and leaning forward worsen her symptoms. SHe states she cant sleep because of the pain. its "like a softball" lower chest - almost to epigastrum. She complains of pain with swallowing. NO cough, fevers. feels a little SOB. no n/v/d. LMP was 08/07/21. Timing/Duration: 4-5 days Severity/Quality: moderate, aching, pressure Location: substernal, epigastric Radiation: no radiation Activities at Onset: none Modifying Factors: worse with eating, worse with lying down, worse with palpation Associated Symptoms: shortness of breath (MONIKA DE PAZ MD) Allergies and Home Medications Allergies Coded Allergies: No Known Drug Allergies (Unverified , 11/10/16) Patient Home Medication List Home Medication List Reviewed: Yes (MONIKA DE PAZ MD) Alprazolam (Xanax) 0.25 Mg Tablet, 0.25 MG PO BID PRN for ANXIETY Prescribed by: DIONI KNIGHT on 04/10/212054 Escitalopram Oxalate (Lexapro) 10 Mg Tablet, 10 MG PO DAILY Prescribed by: DIONI KNIGHT on 04/10/212050 Naproxen (Naproxen) 500 Mg Tablet.dr, 500 MG PO BID Prescribed by: ABY RESENDEZ on 12/09/20 230 Ondansetron (Ondansetron Odt) 4 Mg Tab.rapdis, 4 MG PO Q6H PRN for NAUSEA/VOMITING Prescribed by: MIN SANCHEZ on 09/17/20 1611 [Depo Shot] , 1, (Reported) Entered as Reported by: GIOVANNY GARY on 05/26/15 2110 Review of Systems Review of Systems Constitutional: no symptoms reported; No chills, No diaphoresis, No fever, No malaise EENTM: No Symptoms Reported; No Blurred Vision, No Double Vision Respiratory: No Symptoms Reported; Denies Cough, Denies Shortness of Air Cardiovascular: See HPI; Denies Edema, Denies Lightheadedness, Denies Palpitations, Denies Syncope Gastrointestinal: No Symptoms Reported; Denies Diarrhea, Denies Difficulty Swallowing, Denies Nausea, Denies Vomiting Genitourinary: No Symptoms Reported; Denies Burning, Denies Discharge Musculoskeletal: no symptoms reported; No back pain, No joint pain Skin: no symptoms reported; No change in color, No change in hair/nails Psychiatric/Neurological: No Symptoms Reported; Denies Depressed, Denies Headache Endocrine: No Symptoms Reported; Denies Excessive Sweating, Denies Unexplaned Weight Loss Hematologic/Lymphatic: No Symptoms Reported; Denies Easy Bleeding, Denies Easy Bruising (SUDHEER CHANG [employer] STUDENT) Respiratory: Shortness of Air Cardiovascular: Chest Pain (MONIKA DE PAZ MD) All Other Systems Reviewed Negative Unless Noted: Yes (SUDHEER CHANG) Negative Unless Noted: Yes (MONIKA DE PAZ MD) Past Mtfblry-Pijswc-Ebyvvn Hx Patient Social History Tobacco Use?: No Smoking Status: Never a Smoker Smokeless Tobacco Frequency: Never a User Use of E-Cig and/or Vaping dev: Yes E-Cig or Vaping type used: Nicotine Use of E-Cig and/or Vaping Luis: Current Everyday User Substance use?: No Alcohol Use?: No (SUDHEER CHANG [employer] CATHERINE) Immunizations Up To Date Tetanus Booster (TDap): Unknown PED Vaccines UTD: Yes Influenza Vaccine Up-to-Date: No; Not Current First/Initial COVID19 Vaccinat: NO Second COVID19 Vaccination Gerardo: NO Third COVID19 Vaccination Date: NO (SUDHEER CHANG [employer] CATHERINE) Seasonal Allergies Seasonal Allergies: Yes (SUDHEER CHANG [employer] CATHERINE) Past Medical History Surgeries: Yes (DENTAL/WISDOME TEETH; LEFT ACL REPAIR) Adenoidectomy, Ear Surgery, Orthopedic, Tonsillectomy Respiratory: No Cardiac: Yes High Cholesterol Neurological: No Last Menstrual Period: Aug 07, 2021 Reproductive Disorders: No Genitourinary: No Gastrointestinal: No Musculoskeletal: Yes (LEFT ACL REPAIR) Endocrine: No HEENT: No Loss of Vision: Denies Hearing Impairment: Denies Cancer: No Psychosocial: Yes Anxiety Integumentary: No Blood Disorders: Yes (positive IVA screen) (SUDHEER CHANG [employer] CATHERINE) Family Medical History No Pertinent Family Hx, Heart Disease, Cancer, CAD Under 55 Years Old, DVT/PE, Diabetes (SUDHEER CHANG [employer] STUDENT) Physical Exam Vital Signs Vital Signs - First Documented (MONIKA DE PAZ MD) Vital Signs Capillary Refill : Less Than 3 Seconds (SUDHEER CHANG [employer] STUDENT) Height, Weight, BMI Height: 5'9.00" Weight: 150lbs. 6.0oz. 68.075975jc; 21.00 BMI Method:Stated General Appearance: No Apparent Distress, WD/WN, Anxious HEENT: PERRL/EOMI, Pharynx Normal, Moist Mucous Membranes Neck: Full Range of Motion, Normal Inspection, Non Tender Respiratory: Chest Non Tender, Lungs Clear, Normal Breath Sounds, No Accessory Muscle Use Cardiovascular: Regular Rate, Rhythm, No Edema, Normal Peripheral Pulses Gastrointestinal: Normal Bowel Sounds, Non Tender, Soft Rectal: Deferred Extremity: Normal Capillary Refill, Normal Inspection, Non Tender, No Calf Tenderness, No Pedal Edema Neurologic/Psychiatric: Alert, Oriented x3, No Motor/Sensory Deficits, Normal Mood/Affect Skin: Normal Color, Warm/Dry Lymphatic: No Adenopathy (Head and Neck) (SUDHEER CHANG STUDENT) General Appearance: No Apparent Distress, WD/WN, Anxious (mildly anxious) HEENT: Moist Mucous Membranes Neck: Normal Inspection, Supple Respiratory: Lungs Clear, Normal Breath Sounds, No Accessory Muscle Use Cardiovascular: Regular Rate, Rhythm (70-80's), No Edema, Normal Peripheral Pulses Gastrointestinal: Soft, Tenderness (epigastrum) Extremity: Normal Capillary Refill, Normal Inspection, Normal Range of Motion, Non Tender, No Calf Tenderness, No Pedal Edema Neurologic/Psychiatric: Alert, Oriented x3, No Motor/Sensory Deficits, Normal Mood/Affect Skin: Normal Color, Warm/Dry (MONIKA DE PAZ MD) Progress/Results/Core Measures Results/Orders Lab Results Laboratory Tests Test 09/06/21 22:30 09/06/21 22:45 Range/Units Urine Test NEGATIVE NEGATIVE White Blood Count 8.1 4.3-11.0 10^3/uL Red Blood Count 4.88 3.80-5.11 10^6/uL Hemoglobin 14.0 11.5-16.0 g/dL Hematocrit 41 35-52 % Mean Corpuscular Volume 85 80-99 fL Mean Corpuscular Hemoglobin 29 25-34 pg Mean Corpuscular Hemoglobin Concent 34 32-36 g/dL Red Cell Distribution Width 12.6 10.0-14.5 % Platelet Count 245 130-400 10^3/uL Mean Platelet Volume 10.8 9.0-12.2 fL Immature Granulocyte % (Auto) 0 % Neutrophils (%) (Auto) 47 42-75 % Lymphocytes (%) (Auto) 41 12-44 % Monocytes (%) (Auto) 10 0-12 % Eosinophils (%) (Auto) 1 0-10 % Basophils (%) (Auto) 0 0-10 % Neutrophils # (Auto) 3.8 1.8-7.8 10^3/uL Lymphocytes # (Auto) 3.3 1.0-4.0 10^3/uL Monocytes # (Auto) 0.8 0.0-1.0 10^3/uL Eosinophils # (Auto) 0.1 0.0-0.3 10^3/uL Basophils # (Auto) 0.0 0.0-0.1 10^3/uL Immature Granulocyte # (Auto) 0.0 0.0-0.1 10^3/uL Sodium Level 138 135-145 MMOL/L Potassium Level 3.2 L 3.6-5.0 MMOL/L Chloride Level 108 H 98-107 MMOL/L Carbon Dioxide Level 17 L 21-32 MMOL/L Anion Gap 13 5-14 MMOL/L Blood Urea Nitrogen 10 7-18 MG/DL Creatinine 0.81 0.60-1.30 MG/DL Estimat Glomerular Filtration Rate 107 BUN/Creatinine Ratio 12 Glucose Level 91 70-105 MG/DL Calcium Level 9.3 8.5-10.1 MG/DL Corrected Calcium 9.1 8.5-10.1 MG/DL Total Bilirubin 0.6 0.1-1.0 MG/DL Aspartate Amino Transf (AST/SGOT) 15 5-34 U/L Alanine Aminotransferase (ALT/SGPT) 15 0-55 U/L Alkaline Phosphatase 52 40-136 U/L Troponin I < 0.028 <0.028 NG/ML Total Protein 7.0 6.4-8.2 GM/DL Albumin 4.3 3.2-4.5 GM/DL (MONIKA DE PAZ MD) My Orders Orders - MONIKA DE PAZ MD Hcg,Qualitative Urine (09/06/21 23:13) Cbc With Automated Diff (09/06/21 23:13) Comprehensive Metabolic Panel (09/06/21 23:13) Troponin I [place] (09/06/21 23:13) Chest 1 View, Ap/Pa Only (09/06/21 23:13) Ekg Tracing (09/06/21 23:13) Ketorolac Injection (Toradol Injection) (09/06/21 23:30) Alprazolam Tablet (Xanax Tablet) (09/07/21 00:28) Lidocaine 2% Viscous 15 Ml (Xylocaine Vi (09/07/21 00:30) Antacid Suspension (Mylanta Suspension (09/07/21 00:30) Sucralfate Tablet (Carafate Tablet) (09/07/21 00:30) (MONIKA DE PAZ MD) Medications Given in ED Current Medications Medications Dose Ordered Sig/Pamela Route Start Time Stop Time Status Last Admin Dose Admin Ketorolac Tromethamine 30 mg ONCE ONCE IVP 09/06/21 23:30 09/06/21 23:31 DC 09/06/21 23:40 30 MG (MONIKA DE PAZ MD) Vital Signs/I&O 09/06/21 09/06/21 22:33 22:33 Temp 36.2 36.2 Pulse 80 80 Resp 22 22 B/P (MAP) 128/78 128/98 (108) Pulse Ox 100 100 O2 Delivery Room Air Room Air (MONIKA DE PAZ MD) Blood Pressure Mean: 108 Progress Progress Note #1: Time: 23:53 Progress Note Basic laboratory studies reviewed - slightly low potassium and Co2. otherwise all normal. Neg troponin in the face of constant pain for 4-5 days. Chest xray reviewed and also no acute findings there. VSS. Given toradol for pain. She declined a GI Cocktail because the last time she had one it caused her to have a "panic attack" because she couldnt feel her throat. No tachycardia or EKG findings. No concern for Stemi or PE. Suspect GI etiology. Will send home with recc to continue omeprazole and NSAIDS. [place] diet. follow up with [facility]. Progress Note #2: Time: 00:29 Progress Note Patient extremely anxious about this "knot" in her chest. Not tachy, not hypertensive, not hypoxic. Work up is unremarkable. Rec a dose of xanax and then a GI cocktail. I think this would really help her. She is agreeable if the nurse will stay in the room with her because she is concerned the lidocaine will cause her to panic. She did not get any relief from the toradol..Will send her home after the GI cocktail to continue the omeprazole and follow up with [facility]. (MONIKA DE PAZ MD) Initial ECG Impression Date: Sep 06, 2021 Initial ECG Impression Time: 22:32 Initial ECG Rate: 82 Initial ECG Rhythm: Normal Sinus Initial ECG Intervals: Normal Initial ECG Impression: Normal (MONIKA DE PAZ MD) Diagnostic Imaging Diagonstic Imaging: Xray Plain Films/CT/US/NM/MRI: chest Comments no acute findings Reviewed: Reviewed by Me (MONIKA DE PAZ MD) Departure Impression Primary Impression: Esophageal spasm Additional Impression: Anxiety about health Disposition: 01 HOME, SELF-CARE Condition: Stable Departure-Patient Inst. Decision time for Depature: 00:33 (MONIKA DE PAZ MD) Referrals: [facility] MD (PCP/Family) Primary Care Physician Patient Instructions: [place]al[place] Add. Discharge Instructions: Continue the Omeprazole as previously prescribed. Chew your food well and take small bites at a time. Follow up with [facility] to further evaluate and manage your symptoms. Return to the Emergency Department for any new, concerning or emergent symptoms. SUDHEER CHANG MED STUDENT Sep 06, 2021 23:09 MONIKA DE PAZ MD Sep 06, 2021 23:36
[2021-09-06 23:18] LABS: BASOPHILS % (AUTO) 0 % (0-10); EOSINOPHILS # (AUTO) 0.1 10^3/uL (0.0-0.3); EOSINOPHILS % (AUTO) 1 % (0-10); HEMATOCRIT 41 % (35-52); LYMPHOCYTES # (AUTO) 3.3 10^3/uL (1.0-4.0); LYMPHOCYTES % (AUTO) 41 % (12-44); MEAN CORPUSCULAR HEMOGLOBIN 29 pg (25-34); MEAN CORPUSCULAR HGB CONC 34 g/dL (32-36); MEAN CORPUSCULAR VOLUME 85 fL (80-99); MEAN PLATELET VOLUME 10.8 fL (9.0-12.2); MONOCYTES # (AUTO) 0.8 10^3/uL (0.0-1.0); MONOCYTES % (AUTO) 10 % (0-12); NEUTROPHILS # (AUTO) 3.8 10^3/uL (1.8-7.8); NEUTROPHILS % (AUTO) 47 % (42-75); PLATELET COUNT 245 10^3/uL (130-400); WHITE BLOOD COUNT 8.1 10^3/uL (4.3-11.0)
[2021-09-06 23:27] LABS: ALBUMIN 4.3 GM/DL (3.2-4.5); CHLORIDE 108 MMOL/L (98-107)
[2021-09-06 23:28] LABS: POTASSIUM 3.2 MMOL/L (3.6-5.0); SODIUM 138 MMOL/L (135-145)
[2021-09-06 23:29] LABS: CALCIUM 9.3 MG/DL (8.5-10.1)
[2021-09-06 23:30] LABS: GLUCOSE 91 MG/DL (70-105)
[2021-09-06] MEDS ORDERED: KETOROLAC 30 MG/ML VIAL IVP ONE (23:30)
[2021-09-06 23:31] LABS: CARBON DIOXIDE 17 MMOL/L (21-32)
[2021-09-06 23:32] LABS: BILIRUBIN,TOTAL 0.6 MG/DL (0.1-1.0)
[2021-09-06 23:33] LABS: ALKALINE PHOSPHATASE 52 U/L (40-136); CREATININE SERUM 0.81 MG/DL (0.60-1.30); GFR ESTIMATED 107
[2021-09-06 23:34] LABS: BUN/CREATININE RATIO 12
[2021-09-06 23:36] LABS: ALANINE AMINOTRANSFERASE 15 U/L (0-55)
[2021-09-07] MEDS ORDERED: ALPRAZolam 0.5 MG (XANAX) TAB PO STA (00:28)
[2021-09-07] MEDS ORDERED: LIDOCAINE 2% VISCOUS 15 ML UDC PO ONE (00:30)
[2021-09-07] MEDS ORDERED: SUCRALFATE 1 GM (CARAFATE) TAB PO ONE (00:30)
[2021-09-07] MEDS ORDERED: ANTACID SUSP 30 ML UDC (MYLANTA) PO ONE (00:30)
[2021-09-07 01:15] VITALS: BP 108/78
[2021-09-07] MEDS ORDERED: diphenhydrAMINE 50 MG/ML INJ (BENADRYL) IV ONE (01:15)
--- NOTE | 2021-09-07 05:44 | Diagnostic Imaging Report ---
Indication: Chest pain Portable chest 11:34 PM Heart size and pulmonary vascularity are normal. Lungs are clear. There are no effusions or pneumothoraces. IMPRESSION: Unremarkable chest Dictated by: Dictated on workstation # [id number]
== END 2021-09-07 01:16 | disposition home or self-care (01) ==
LOC: EDUNIT# 22:26 → ER 22:28
DX: K22.4 Dyskinesia of esophagus (principal); F17.290 Nicotine dependence, other tobacco product, uncomplicated
CPT/HCPCS: 36415; 71045; 80053; 84484; 84703; 85025; 93005

== ENCOUNTER → 2021-09-12 | Outpatient (CLI) | payer MEDICAID ==
--- NOTE | 2021-09-12 14:37 | Diagnostic Imaging Report ---
PROCEDURE: Pelvic comp/transvaginal sonogram. TECHNIQUE: Complete transabdominal and transvaginal pelvic ultrasound was performed. In addition, limited pelvic Doppler was performed. INDICATION: Abdominal pain, greatest in the right lower quadrant. The uterus is anteverted measuring 7.4 x 3.0 x 4.1 cm. Endometrium is 4 mm in thickness. No myometrial mass is detected. Right ovary measures 5.1 x 3.4 x 4.3 cm and left ovary measures 2.3 x 1.7 x 2.6 cm. There is blood flow to the ovaries. Right ovary contains a complex 3.0 x 2.4 x 3.2 cm cyst, likely hemorrhagic. Left ovary contains follicles. There is no free fluid identified. IMPRESSION: 3.2 cm probable right ovarian hemorrhagic cyst. No other significant abnormality is detected. Dictated by: Dictated on workstation # [id number]
== END ==
LOC: RAD 13:19
PROVIDERS: ATTEND Nurse Practitioner Family
DX: N83.201 Unspecified ovarian cyst, right side (principal)
CPT/HCPCS: 76830; 76856

== ENCOUNTER 2021-12-08 22:16 | Emergency (ER) | payer MEDICAID ==
[~2021-12-08] VITALS: Ht 177 cm; Wt 67.6 kg
[2021-12-08 22:38] LABS: BILIRUBIN,URINE NEGATIVE (NEGATIVE); CLARITY,URINE CLEAR; COLOR,URINE YELLOW; GLUCOSE, URINE (UA) NEGATIVE (NEGATIVE); KETONES,URINE NEGATIVE (NEGATIVE); LEUKOCYTE ESTERASE ,URINE 2+ (NEGATIVE); NITRITE,URINE NEGATIVE (NEGATIVE); PROTEIN,URINE NEGATIVE (NEGATIVE)
[2021-12-08 22:57] LABS: BACTERIA,URINE FEW /HPF; RBC,URINE 0-2 /HPF
[2021-12-08 23:46] LABS: BASOPHILS % (AUTO) 1 % (0-10); EOSINOPHILS # (AUTO) 0.1 10^3/uL (0.0-0.3); EOSINOPHILS % (AUTO) 1 % (0-10); HEMATOCRIT 39 % (35-52); LYMPHOCYTES # (AUTO) 2.5 10^3/uL (1.0-4.0); LYMPHOCYTES % (AUTO) 34 % (12-44); MEAN CORPUSCULAR HEMOGLOBIN 29 pg (25-34); MEAN CORPUSCULAR HGB CONC 34 g/dL (32-36); MEAN CORPUSCULAR VOLUME 86 fL (80-99); MEAN PLATELET VOLUME 10.9 fL (9.0-12.2); MONOCYTES # (AUTO) 0.7 10^3/uL (0.0-1.0); MONOCYTES % (AUTO) 9 % (0-12); NEUTROPHILS # (AUTO) 4.2 10^3/uL (1.8-7.8); NEUTROPHILS % (AUTO) 55 % (42-75); PLATELET COUNT 227 10^3/uL (130-400); WHITE BLOOD COUNT 7.5 10^3/uL (4.3-11.0)
[2021-12-08 23:52] LABS: CALCIUM 9.1 MG/DL (8.5-10.1)
[2021-12-08 23:56] LABS: CREATININE SERUM 0.72 MG/DL (0.60-1.30)
[2021-12-09] MEDS ORDERED: CEPH500T PO (00:51)
--- NOTE | 2021-12-09 00:51 | ED GU-Female ---
General Chief Complaint: OB < 20 WEEKS Stated Complaint: 7 WEEKS SHARP PAINS Nursing Triage Note: patient verbalized approx 7 weeks . stats seen OB and was told she might or might not be having a miscarrage. patient states ultrasound inconclusive. abd. cramping Source: patient Exam Limitations: no limitations History of Present Illness Date Seen by Provider: Dec 08, 2021 Time Seen by Provider: 23:30 Initial Comments Patient to the ER by private conveyance with her significant other and chief complaint that she is approximately 7 weeks . She had an ultrasound and was told that she was having a miscarriage. She had some routine hCG about a week ago which were was 3000 and a couple days later 5000 and then yesterday was 9000. Initially her fixed route bus operator told her she was having a miscarriage but then they came back and told her that she actually was not having a miscarriage. She is a G1, P0 with an LMP of October 19 putting her at approximately 7 weeks and 2 days. No tissues were seen on either ultrasound per the patient. She has been having some cramping on her left side today. No nausea or dysuria. She is not having any vaginal bleeding or discharge. OB provider is in [place], [place]. Allergies and Home Medications Allergies Coded Allergies: No Known Drug Allergies (Unverified , 11/10/16) Patient Home Medication List Home Medication List Reviewed: Yes Alprazolam (Xanax) 0.25 Mg Tablet, 0.25 MG PO BID PRN for ANXIETY Prescribed by: DIONI KNIGHT on 04/10/212054 Cephalexin (Cephalexin) 500 Mg Tablet, 500 MG PO BID Prescribed by: EDWAR KING on 12/09/21 005 Escitalopram Oxalate (Lexapro) 10 Mg Tablet, 10 MG PO DAILY Prescribed by: DIONI KNIGHT on 04/10/212050 Naproxen (Naproxen) 500 Mg Tablet.dr, 500 MG PO BID Prescribed by: ABY RESENDEZ on 12/09/202300 Ondansetron (Ondansetron Odt) 4 Mg Tab.rapdis, 4 MG PO Q6H PRN for NAUSEA/VOMITING Prescribed by: MIN SANCHEZ on 09/17/20 1611 [Depo Shot] , 1, (Reported) Entered as Reported by: GIOVANNY GARY on 05/26/15 2110 Review of Systems Review of Systems Constitutional: No chills, No diaphoresis EENTM: No ear discharge, No ear pain Respiratory: No cough, No short of breath Cardiovascular: No chest pain, No edema Gastrointestinal: No abdominal pain, No constipation, No diarrhea, No nausea Genitourinary: denies discharge, denies dysuria Musculoskeletal: No back pain, No joint pain All Other Systemes Reviewed Negative Unless Noted: Yes Past Ifksouz-Aznuzb-Abkbdg Hx Patient Social History Tobacco Use?: No Use of E-Cig and/or Vaping dev: No Immunizations Up To Date Tetanus Booster (TDap): Unknown PED Vaccines UTD: Yes First/Initial COVID19 Vaccinat: 2020 Second COVID19 Vaccination Gerardo: 2020 Third COVID19 Vaccination Date: 2020 Seasonal Allergies Seasonal Allergies: Yes Past Medical History Surgery/Hospitalization HX: tonsil/sawyer., ACL Surgeries: Yes (DENTAL/WISDOME TEETH; LEFT ACL REPAIR) Adenoidectomy, Ear Surgery, Orthopedic, Tonsillectomy Respiratory: No Cardiac: Yes High Cholesterol Neurological: No Last Menstrual Period: Oct 19, 2021 Reproductive Disorders: No Genitourinary: No Gastrointestinal: No Musculoskeletal: Yes (LEFT ACL REPAIR) Endocrine: No HEENT: No Loss of Vision: Denies Hearing Impairment: Denies Cancer: No Psychosocial: Yes Anxiety Integumentary: No Blood Disorders: Yes (positive IVA screen) Family Medical History No Pertinent Family Hx, Heart Disease, Cancer, CAD Under 55 Years Old, DVT/PE, Diabetes Physical Exam Vital Signs Vital Signs - First Documented 12/08/21 22:29 Temp 36.4 Pulse 72 Resp 20 B/P (MAP) 125/86 (99) Pulse Ox 100 O2 Delivery Room Air Capillary Refill : Less Than 3 Seconds Height, Weight, BMI Height: 5'9.00" Weight: 150lbs. 6.0oz. 68.598953gw; 21.00 BMI Method:Stated General Appearance: WD/WN, no apparent distress HEENT: PERRL/EOMI, pharynx normal Neck: full range of motion, normal inspection Cardiovascular: normal peripheral pulses, regular rate, rhythm Respiratory: no respiratory distress, no accessory muscle use Gastrointestinal: non tender, soft Extremities: normal inspection, normal capillary refill Neurologic/Psychiatric: alert, oriented x 3, other (Tearful affect) Skin: normal color, warm/dry Progress/Results/Core Measures Suspected Sepsis SIRS Temperature: Pulse: 72 Respiratory Rate: 20 Laboratory Tests 12/08/21 23:30: White Blood Count 7.5 Blood Pressure 125 /86 Mean: 99 Laboratory Tests 12/08/21 23:30: Creatinine 0.72, Platelet Count 227 Results/Orders Lab Results Laboratory Tests Test 12/08/21 22:34 12/08/21 23:30 Range/Units Urine Color YELLOW Urine Clarity CLEAR Urine pH 6.0 5-9 Urine Specific Clemons 1.020 1.016-1.022 Urine Protein NEGATIVE NEGATIVE Urine Glucose (UA) NEGATIVE NEGATIVE Urine Ketones NEGATIVE NEGATIVE Urine Nitrite NEGATIVE NEGATIVE Urine Bilirubin NEGATIVE NEGATIVE Urine Urobilinogen 1.0 < = 1.0 MG/DL Urine Leukocyte Esterase 2+ H NEGATIVE Urine RBC (Auto) TRACE-I H NEGATIVE Urine RBC 0-2 /HPF Urine WBC 5-10 H /HPF Urine Squamous Epithelial Cells 2-5 /HPF Urine Crystals NONE /LPF Urine Bacteria FEW H /HPF Urine Casts NONE /LPF Urine Mucus NEGATIVE /LPF Urine Culture Indicated YES White Blood Count 7.5 4.3-11.0 10^3/uL Red Blood Count 4.50 3.80-5.11 10^6/uL Hemoglobin 13.0 11.5-16.0 g/dL Hematocrit 39 35-52 % Mean Corpuscular Volume 86 80-99 fL Mean Corpuscular Hemoglobin 29 25-34 pg Mean Corpuscular Hemoglobin Concent 34 32-36 g/dL Red Cell Distribution Width 12.7 10.0-14.5 % Platelet Count 227 130-400 10^3/uL Mean Platelet Volume 10.9 9.0-12.2 fL Immature Granulocyte % (Auto) 0 % Neutrophils (%) (Auto) 55 42-75 % Lymphocytes (%) (Auto) 34 12-44 % Monocytes (%) (Auto) 9 0-12 % Eosinophils (%) (Auto) 1 0-10 % Basophils (%) (Auto) 1 0-10 % Neutrophils # (Auto) 4.2 1.8-7.8 10^3/uL Lymphocytes # (Auto) 2.5 1.0-4.0 10^3/uL Monocytes # (Auto) 0.7 0.0-1.0 10^3/uL Eosinophils # (Auto) 0.1 0.0-0.3 10^3/uL Basophils # (Auto) 0.0 0.0-0.1 10^3/uL Immature Granulocyte # (Auto) 0.0 0.0-0.1 10^3/uL Sodium Level 138 135-145 MMOL/L Potassium Level 4.0 3.6-5.0 MMOL/L Chloride Level 108 H 98-107 MMOL/L Carbon Dioxide Level 19 L 21-32 MMOL/L Anion Gap 11 5-14 MMOL/L Blood Urea Nitrogen 9 7-18 MG/DL Creatinine 0.72 0.60-1.30 MG/DL Estimat Glomerular Filtration Rate 122 BUN/Creatinine Ratio 13 Glucose Level 84 70-105 MG/DL Calcium Level 9.1 8.5-10.1 MG/DL Human Chorionic Gonadotropin, Quant 8203 H <5 MIU/ML My Orders Orders - EDWAR KING Ua Culture If Indicated (12/08/21 22:31) Urine Bedside (12/08/21 22:31) Urine Culture (12/08/21 22:34) Hcg,Quantitative (12/08/21 23:24) Cbc With Automated Diff (12/08/21 23:24) Basic Metabolic Panel (12/08/21 23:24) Vital Signs/I&O 12/08/21 12/09/21 22:29 01:12 Temp 36.4 36.4 Pulse 72 72 Resp 20 20 B/P (MAP) 125/86 (99) 125/86 Pulse Ox 100 100 O2 Delivery Room Air Room Air Capillary Refill : Less Than 3 Seconds Blood Pressure Mean: 99 Progress Note : Time: 00:47 Progress Note Her hCGs as she reports them are not consistently doubling every 2 days and they have gone down today per our assay. This would be consistent with a nonviable . She had ultrasound and ruled out ectopic . She says they saw the amniotic sac in the uterus. She is not anything for pain. We will go ahead and treat her asymptomatic bacteriuria with Keflex and encouraged her to use Tylenol Motrin and gave return precautions. Departure Impression Primary Impression: Incomplete miscarriage Additional Impression: Urinary tract infection Qualified Codes: N30.01 - Acute cystitis with hematuria Disposition: HOME, SELF-CARE Condition: Stable Departure-Patient Inst. Decision time for Depature: 00:48 Referrals: JUAN C,JIMENA A MD (PCP/Family) Primary Care Physician Patient Instructions: Miscarriage (DC) Add. Discharge Instructions: It is unclear if you are developing a urinary tract infection or if the findings on your urinalysis are due to your miscarriage. We will go ahead and cover you on some gentle antibiotics for 5 days against an infection. We will culture the urine and have results in about 2 days. Expect to have some increasing, intermittent cramping like pain which can be treated with Tylenol 1000 mg every 8 hours as needed. Ibuprofen 800 mg every 8 hours as needed for pain. Follow-up with your OB provider during the day or return to the ER after hours if you are experiencing intractable pain, nausea and vomiting or passing blood clots larger than the chickens egg or you develop chest pain, shortness of air or other worrisome symptoms. All discharge instructions reviewed with patient and/or family. Voiced understanding. Scripts Cephalexin (Cephalexin) 500 Mg Tablet 500 MG PO BID for 5 Days, #10 TAB 0 Refills Prov: EDWAR KING 12/09/21 EDWAR KING Dec 09, 2021 00:51
[2021-12-09 01:12] VITALS: BP 125/86
== END 2021-12-09 01:12 | disposition home or self-care (01) ==
LOC: EDUNIT# 22:16 → ER 22:19
DX: O23.41 Unspecified infection of urinary tract in pregnancy, first trimester (principal); N39.0 Urinary tract infection, site not specified; O03.4 Incomplete spontaneous abortion without complication; Z3A.01 Less than 8 weeks gestation of pregnancy
CPT/HCPCS: 36415; 80048; 81000; 84702; 84703; 85025; 87088

== ENCOUNTER 2022-02-20 12:50 | Emergency (ER) | payer MEDICAID ==
[~2022-02-20] VITALS: Ht 177.8 cm; Wt 67.6 kg
[~2022-02-20 12:50] MED LIST changes: +CEPH500T PO
[2022-02-20 13:15] LABS: BASOPHILS % (AUTO) 0 % (0-10); EOSINOPHILS # (AUTO) 0.1 10^3/uL (0.0-0.3); EOSINOPHILS % (AUTO) 1 % (0-10); HEMATOCRIT 39 % (35-52); LYMPHOCYTES # (AUTO) 1.9 10^3/uL (1.0-4.0); LYMPHOCYTES % (AUTO) 32 % (12-44); MEAN CORPUSCULAR HEMOGLOBIN 28 pg (25-34); MEAN CORPUSCULAR HGB CONC 33 g/dL (32-36); MEAN CORPUSCULAR VOLUME 85 fL (80-99); MEAN PLATELET VOLUME 10.7 fL (9.0-12.2); MONOCYTES # (AUTO) 0.6 10^3/uL (0.0-1.0); MONOCYTES % (AUTO) 10 % (0-12); NEUTROPHILS # (AUTO) 3.4 10^3/uL (1.8-7.8); NEUTROPHILS % (AUTO) 57 % (42-75); PLATELET COUNT 268 10^3/uL (130-400)
[2022-02-20] MEDS ORDERED: KETOROLAC 30 MG/ML VIAL IVP ONE (13:15)
--- NOTE | 2022-02-20 13:17 | ED GU-Female ---
General Chief Complaint: - Reproductive Stated Complaint: HEAVY MENSTRUAL BLEED, FAINT, FATIGUE Source: patient Exam Limitations: no limitations History of Present Illness Date Seen by Provider: Feb 20, 2022 Time Seen by Provider: 13:16 Allergies and Home Medications Allergies Coded Allergies: No Known Drug Allergies (Unverified , 11/10/16) Patient Home Medication List Alprazolam (Xanax) 0.25 Mg Tablet, 0.25 MG PO BID PRN for ANXIETY Prescribed by: DIONI KNIGHT on 04/10/212054 Cephalexin (Cephalexin) 500 Mg Tablet, 500 MG PO BID Prescribed by: EDWAR KING on 12/09/2150 Escitalopram Oxalate (Lexapro) 10 Mg Tablet, 10 MG PO DAILY Prescribed by: DIONI KNIGHT on 04/10/212050 Naproxen (Naproxen) 500 Mg Tablet.dr, 500 MG PO BID Prescribed by: ABY RESENDEZ on 12/09/202300 Ondansetron (Ondansetron Odt) 4 Mg Tab.rapdis, 4 MG PO Q6H PRN for NAUSEA/VOMITING Prescribed by: MIN SANCHEZ on 09/17/20 1611 [Depo Shot] , 1, (Reported) Entered as Reported by: GIOVANNY GARY on 05/26/152109 Past Ztvpqvk-Npigch-Spyiez Hx Immunizations Up To Date Tetanus Booster (TDap): Unknown PED Vaccines UTD: Yes First/Initial COVID19 Vaccinat: 2020 Second COVID19 Vaccination Gerardo: 2020 Third COVID19 Vaccination Date: 2020 Seasonal Allergies Seasonal Allergies: Yes Past Medical History Surgery/Hospitalization HX: tonsil/sawyer., ACL Surgeries: Yes (DENTAL/WISDOME TEETH; LEFT ACL REPAIR) Adenoidectomy, Ear Surgery, Orthopedic, Tonsillectomy Respiratory: No Cardiac: Yes High Cholesterol Neurological: No Reproductive Disorders: No Genitourinary: No Gastrointestinal: No Musculoskeletal: Yes (LEFT ACL REPAIR) Endocrine: No HEENT: No Loss of Vision: Denies Hearing Impairment: Denies Cancer: No Psychosocial: Yes Anxiety Integumentary: No Blood Disorders: Yes (positive IVA screen) Family Medical History No Pertinent Family Hx, Heart Disease, Cancer, CAD Under 55 Years Old, DVT/PE, Diabetes Physical Exam Vital Signs Vital Signs - First Documented 02/20/22 13:05 Temp 37.0 Pulse 74 Resp 16 B/P (MAP) 126/88 (101) Pulse Ox 100 Capillary Refill : Height, Weight, BMI Height: 5'9.00" Weight: 150lbs. 6.0oz. 68.874506ll; 21.00 BMI Method:Stated Progress/Results/Core Measures Suspected Sepsis SIRS Temperature: Pulse: Respiratory Rate: Laboratory Tests 02/20/22 13:05: White Blood Count 6.0 Blood Pressure / Mean: Laboratory Tests 02/20/22 13:05: Creatinine 0.83, Platelet Count 268, Total Bilirubin 0.5 Results/Orders Lab Results Laboratory Tests Test 02/20/22 13:05 02/20/22 13:10 Range/Units White Blood Count 6.0 4.3-11.0 10^3/uL Red Blood Count 4.59 3.80-5.11 10^6/uL Hemoglobin 13.0 11.5-16.0 g/dL Hematocrit 39 35-52 % Mean Corpuscular Volume 85 80-99 fL Mean Corpuscular Hemoglobin 28 25-34 pg Mean Corpuscular Hemoglobin Concent 33 32-36 g/dL Red Cell Distribution Width 13.2 10.0-14.5 % Platelet Count 268 130-400 10^3/uL Mean Platelet Volume 10.7 9.0-12.2 fL Immature Granulocyte % (Auto) 0 % Neutrophils (%) (Auto) 57 42-75 % Lymphocytes (%) (Auto) 32 12-44 % Monocytes (%) (Auto) 10 0-12 % Eosinophils (%) (Auto) 1 0-10 % Basophils (%) (Auto) 0 0-10 % Neutrophils # (Auto) 3.4 1.8-7.8 10^3/uL Lymphocytes # (Auto) 1.9 1.0-4.0 10^3/uL Monocytes # (Auto) 0.6 0.0-1.0 10^3/uL Eosinophils # (Auto) 0.1 0.0-0.3 10^3/uL Basophils # (Auto) 0.0 0.0-0.1 10^3/uL Immature Granulocyte # (Auto) 0.0 0.0-0.1 10^3/uL Sodium Level 142 135-145 MMOL/L Potassium Level 3.7 3.6-5.0 MMOL/L Chloride Level 109 H 98-107 MMOL/L Carbon Dioxide Level 22 21-32 MMOL/L Anion Gap 11 5-14 MMOL/L Blood Urea Nitrogen 6 L 7-18 MG/DL Creatinine 0.83 0.60-1.30 MG/DL Estimat Glomerular Filtration Rate 103 BUN/Creatinine Ratio 7 Glucose Level 98 70-105 MG/DL Calcium Level 9.3 8.5-10.1 MG/DL Corrected Calcium 9.1 8.5-10.1 MG/DL Total Bilirubin 0.5 0.1-1.0 MG/DL Aspartate Amino Transf (AST/SGOT) 14 5-34 U/L Alanine Aminotransferase (ALT/SGPT) 13 0-55 U/L Alkaline Phosphatase 47 40-136 U/L Total Protein 7.2 6.4-8.2 GM/DL Albumin 4.2 3.2-4.5 GM/DL Human Chorionic Gonadotropin, Quant < 5 <5 MIU/ML Urine Test NEGATIVE NEGATIVE My Orders Orders - CARLOS A HAWKINS VETERINARY VIROLOGIST Cbc With Automated Diff (02/20/22 13:05) Hcg,Quantitative (02/20/22 13:05) Ed Iv/Invasive Line Start (02/20/22 13:05) Comprehensive Metabolic Panel (02/20/22 13:05) Hcg,Qualitative Urine (02/20/22 13:15) Ketorolac Injection (Toradol Injection) (02/20/22 13:15) Ct Abdomen/Pelvis W (02/20/22 13:17) Iohexol Injection (Omnipaque 350 Mg/Ml 1 (02/20/22 13:30) Received Contrast (Hold Metformin- Contr (02/20/22 13:30) Sodium Chloride Flush (Catheter Flush Sy (02/20/22 13:30) Ns (Ivpb) (Sodium Chloride 0.9% Ivpb Bag (02/20/22 13:30) Us Non Ob Pelvis Comp/Transvag (02/20/22 14:20) Medications Given in ED Current Medications Medications Dose Ordered Sig/Pamela Route Start Time Stop Time Status Last Admin Dose Admin Iohexol 100 ml ONCE ONCE IV 02/20/22 13:30 02/20/22 13:31 DC 02/20/22 14:38 77 ML Ketorolac Tromethamine 30 mg ONCE ONCE IVP 02/20/22 13:15 02/20/22 13:16 DC 02/20/22 13:25 30 MG Sodium Chloride 10 ml NEEDED PRN IV 02/20/22 13:30 02/20/22 14:38 10 ML Sodium Chloride 100 ml ONCE ONCE IV 02/20/22 13:30 02/20/22 13:31 DC 02/20/22 14:38 80 ML Vital Signs/I&O 02/20/22 13:05 Temp 37.0 Pulse 74 Resp 16 B/P (MAP) 126/88 (101) Pulse Ox 100 Capillary Refill : Departure Impression Primary Impression: Heavy menstrual bleeding Disposition: HOME, SELF-CARE Condition: Improved Departure-Patient Inst. Decision time for Depature: 15:17 Referrals: JIMENA IRIZARRY MD (PCP/Family) Primary Care Physician Patient Instructions: Heavy Periods (DC) Add. Discharge Instructions: Plan: 1. Take your TXA as prescribed by your DESK PENS ASSEMBLER. 2. May take Tylenol or Ibuprofen for pain as needed per package. 3. Return for any dizziness, lightheadedness, shortness of breath, or any other new or concerning symptoms. All discharge instructions reviewed with patient and/or family. Voiced understanding. CARLOS A HAWKINS VETERINARY VIROLOGIST Feb 20, 2022 13:16
[2022-02-20 13:26] LABS: ALBUMIN 4.2 GM/DL (3.2-4.5)
[2022-02-20 13:27] LABS: CHLORIDE 109 MMOL/L (98-107); POTASSIUM 3.7 MMOL/L (3.6-5.0); SODIUM 142 MMOL/L (135-145)
[2022-02-20 13:28] LABS: CALCIUM 9.3 MG/DL (8.5-10.1)
[2022-02-20 13:29] LABS: GLUCOSE 98 MG/DL (70-105); TOTAL PROTEIN 7.2 GM/DL (6.4-8.2)
[2022-02-20 13:30] LABS: CARBON DIOXIDE 22 MMOL/L (21-32)
[2022-02-20] MEDS ORDERED: IOHEXOL 350 MG/ML 100 ML (OMNIPAQUE 350) VIAL IV ONE (13:30)
[2022-02-20] MEDS ORDERED: HOLD METFORMIN - RECEIVED CONTRAST 20 ML VIAL IV SCH (13:30)
[2022-02-20] MEDS ORDERED: NS 100 ML (IVPB) BAG IV ONE (13:30)
[2022-02-20] MEDS ORDERED: CATHETER FLUSH 10 ML SYR IV PRN (13:30)
[2022-02-20 13:31] LABS: BILIRUBIN,TOTAL 0.5 MG/DL (0.1-1.0)
[2022-02-20 13:32] LABS: ALKALINE PHOSPHATASE 47 U/L (40-136)
[2022-02-20 13:33] LABS: CREATININE SERUM 0.83 MG/DL (0.60-1.30); GFR ESTIMATED 103
[2022-02-20 13:34] LABS: BUN/CREATININE RATIO 7
[2022-02-20 13:36] LABS: ALANINE AMINOTRANSFERASE 13 U/L (0-55)
--- NOTE | 2022-02-20 14:57 | Diagnostic Imaging Report ---
PROCEDURE: CT abdomen and pelvis with contrast. TECHNIQUE: Multiple contiguous axial images were obtained through the abdomen and pelvis after administration of intravenous contrast. Auto Exposure Controls were utilized during the CT exam to meet ALARA standards for radiation dose reduction. All CT scans use one or more of the following dose optimizing techniques: automated exposure control, MA and/or KvP adjustment based on patient size and exam type or iterative reconstruction. INDICATION: Abdominal pain and vaginal bleeding. COMPARISON: 09/05/2020. FINDINGS: No focal hepatic, gallbladder, pancreatic, adrenal gland or splenic abnormality is identified. Kidneys are also unremarkable in appearance. There is no free fluid within the abdomen or pelvis. Unopacified bladder is unremarkable in appearance. There is no evidence of appendiceal inflammation. Bladder has no evidence of acute osseous abnormality. There is moderate amount of stool retained within the proximal colon. No definite uterine abnormality is identified. IMPRESSION: No acute abnormality is detected. There may be a component of constipation. Dictated by: Dictated on workstation # [id number]
[2022-02-20 15:25] VITALS: BP 120/81
--- NOTE | 2022-02-20 15:27 | Diagnostic Imaging Report ---
PROCEDURE: Pelvic comp/transvaginal sonogram. TECHNIQUE: Complete transabdominal and transvaginal pelvic ultrasound was performed. In addition, limited pelvic Doppler was performed. INDICATION: Heavy vaginal bleeding. FINDINGS: Uterus is anteverted measuring 5.7 x 2.4 x 4.1 cm. Endometrium is 3 mm in thickness. No myometrial mass is detected. Right ovary measures 3.8 x 1.6 x 2.1 cm and the left ovary measures 3.3 x 1.7 x 3.0 cm. Both ovaries demonstrate blood flow. No adnexal mass or free fluid is detected. IMPRESSION: Unremarkable transabdominal and transvaginal pelvic ultrasound with limited pelvic Doppler. Dictated by: Dictated on workstation # [id number]
== END 2022-02-20 15:33 | disposition home or self-care (01) ==
LOC: EDUNIT# 12:50 → ER 12:53
DX: N92.0 Excessive and frequent menstruation with regular cycle (principal); Z32.02 Encounter for pregnancy test, result negative
CPT/HCPCS: 36415; 74177; 76830; 76856; 80053; 84702; 84703; 85025

== ENCOUNTER → 2022-03-19 | Outpatient (CLI) | payer MEDICAID ==
--- NOTE | 2022-03-19 17:26 | Diagnostic Imaging Report ---
PROCEDURE: CT head without contrast. TECHNIQUE: Multiple contiguous axial images were obtained through the brain without the use of intravenous contrast. Auto Exposure Controls were utilized during the CT exam to meet ALARA standards for radiation dose reduction. INDICATION: Right pupil dilatation. FINDINGS: The ventricles and sulci are within normal limits. There is no hydrocephalus or cerebral edema. There is no midline shift or mass effect. There is no intracranial mass, hemorrhage, or extra-axial fluid collection. The visualized paranasal sinuses and mastoid air cells are clear. There are no regional areas of decreased attenuation appreciated to suggest an acute CVA. IMPRESSION: No acute intracranial abnormality. Dictated by: Dictated on workstation # [id number]
== END ==
LOC: RAD 16:33
PROVIDERS: ATTEND Family Medicine
DX: H57.04 Mydriasis (principal); R42 Dizziness and giddiness; R51.9 Headache, unspecified
CPT/HCPCS: 70450

== ENCOUNTER 2022-06-01 06:43 | Outpatient (CLI) | payer MEDICAID ==
[~2022-06-01] VITALS: Ht 177.8 cm; Wt 70.0 kg
[2022-06-01] MEDS ORDERED: PANT40TA2 PO (09:49)
[2022-06-01] MEDS ORDERED: LACT20SO2 PO (09:51)
[2022-06-04] MEDS ORDERED: TRM50T PO (09:07)
[2022-06-04] MEDS ORDERED: IBUP-1773 PO (09:07)
== END 2022-06-01 10:25 | disposition home or self-care (01) ==
LOC: PREOP 06:43
PROVIDERS: ATTEND Obstetrics & Gynecology
DX: Z01.818 Encounter for other preprocedural examination (principal)

== ENCOUNTER 2022-06-04 08:22 | Day surgery (SDC) | payer MEDICAID ==
[2022-06-04] VITALS (10 sets, daily range): BP systolic 90–173; BP diastolic 56–77
[~2022-06-04] VITALS: Ht 177.8 cm; Wt 70.0 kg
[~2022-06-04 08:22] MED LIST changes: +LACT20SO2 PO
[2022-06-04] MEDS: LACTATED RINGERS 1,000 ML IV PRN ×2 (08:47→11:49)
[2022-06-04] MEDS ORDERED: NS (IVPB) 50 ML ONE (08:51)
[2022-06-04] MEDS ORDERED: ceFAZolin INJECTION 1,000 MG ONE (08:51)
[2022-06-04 08:59] LABS: BASOPHILS % (AUTO) 1 % (0-10); EOSINOPHILS # (AUTO) 0.1 10^3/uL (0.0-0.3); EOSINOPHILS % (AUTO) 2 % (0-10); HEMATOCRIT 39 % (35-52); HEMOGLOBIN 12.7 g/dL (11.5-16.0); LYMPHOCYTES # (AUTO) 1.8 10^3/uL (1.0-4.0); LYMPHOCYTES % (AUTO) 34 % (12-44); MEAN CORPUSCULAR HEMOGLOBIN 28 pg (25-34); MEAN CORPUSCULAR HGB CONC 33 g/dL (32-36); MEAN CORPUSCULAR VOLUME 84 fL (80-99); MONOCYTES # (AUTO) 0.5 10^3/uL (0.0-1.0); MONOCYTES % (AUTO) 10 % (0-12); NEUTROPHILS % (AUTO) 54 % (42-75); PLATELET COUNT 260 10^3/uL (130-400); WHITE BLOOD COUNT 5.5 10^3/uL (4.3-11.0)
[2022-06-04] MEDS ORDERED: ceFAZolin INJECTION 1,000 MG in NS (IVPB) 50 ML IV ONE (09:00)
--- NOTE | 2022-06-04 09:02 | Progress Note-Pre Operative ---
Pre-Operative Progress Note Date of Available H&P: Jun 04, 2022 Date H&P Reviewed: Jun 04, 2022 Time H&P Reviewed: 08:45 History & Physical: H&P Reviewed, Patient Examed, No changes noted Pre-Operative Diagnosis: Right ovarian complex cyst ALEJANDRA SANTIAGO DO Jun 04, 2022 09:02
--- NOTE | 2022-06-04 09:05 | Discharge Inst-Women's Service ---
Discharge Inst-Women's Serv Depart Medication/Instructions New, Converted or Re-Newed RX: Transmitted to Pharmacy Problems Reviewed?: Yes Consults/Follow Up Additional Follow Up: Yes Orders/Referrals Dr. Sutton in 7-10 days Activity Activity: Activity as Tolerated Driving Instructions: No Driving for 1 Week NO SMOKING: NO SMOKING Nothing Inside Vagina: No Douching, No [place], No Tampons Diet Discharge Diet: No Restrictions Symptoms to Report to : Bleeding Excessive, Fever Over 101 Degrees F, Vaginal Bleeding Increase, Wt Gain Consecutive Days For Any Problems or Questions: Contact Your Physician Skin/Wound Care Infection Signs and Symptoms: Increased Redness, Foul Odor of Wound, Increased Drainage, Skin Itchy or Has a Rash, Increased Swelling, Temperature Above 101 F Operative Area Clean and Dry: Keep Incision Clean/Dry Stitches/David/Dermabond: Dermabond, Care of Stitches Bathing Instructions: ALEJANDRA De Leon DO Jun 04, 2022 09:05
[2022-06-04] MEDS ORDERED: IBUP-1773 PO (09:07)
[2022-06-04] MEDS ORDERED: TRM50T PO (09:07)
[2022-06-04] MEDS ORDERED: D5 LR IV SOLUTION 1,000 ML IV SCH (09:15)
[2022-06-04] MEDS ORDERED: KETOROLAC 30 MG/ML VIAL IVP ONE (09:15)
[2022-06-04] MEDS ORDERED: ONDANSETRON 4 MG/2 ML (SDV) Z0FRAN IVP PRN ×2 (09:15→11:30)
[2022-06-04] MEDS ORDERED: METHYLENE BLUE 0.5% (PROVAYBLUE) 50 mg/10 ml vial IV ONE ×2 (09:43→10:59)
[2022-06-04] MEDS ORDERED: BUPIVACAINE 0.25% 30 ML (SENSORCAINE) VIAL ONE (09:43)
[2022-06-04] MEDS ORDERED: FAMOTIDINE 20MG/2ML IV (PEPCID) ONE (09:48)
[2022-06-04] MEDS ORDERED: ONDANSETRON 4 MG/2 ML (SDV) Z0FRAN ONE ×2 (09:48→10:07)
[2022-06-04] MEDS ORDERED: FAMOTIDINE 20MG/2ML IV (PEPCID) IV ONE (10:00)
[2022-06-04] MEDS ORDERED: ONDANSETRON 4 MG/2 ML (SDV) Z0FRAN IV ONE (10:00)
[2022-06-04] MEDS ORDERED: proPOfol 200 MG/20 ML (DIPRIVAN) VIAL IV ONE (10:07)
[2022-06-04] MEDS ORDERED: LIDOCAINE PF 2% 5 ML (XYLOCAINE) VIAL ONE (10:07)
[2022-06-04] MEDS ORDERED: fentaNYL INJ 100 MCG/2 ML AMP ONE (10:07)
[2022-06-04] MEDS ORDERED: ROCURONIUM 10 MG/ML 5 ML SYRINGE IV ONE (10:07)
[2022-06-04] MEDS ORDERED: SEVOFLURANE (ULTANE) 15 ML INHAL SOLN ONE (10:07)
[2022-06-04] MEDS ORDERED: MIDAZOLAM 2 MG/2 ML (VERSED) VIAL ONE (10:08)
[2022-06-04] MEDS ORDERED: BUPIVACAINE 0.25% 30 ML (SENSORCAINE) VIAL INJ ONE (11:00)
--- NOTE | 2022-06-04 11:26 | Anesthesia-General Post-Op ---
General Patient Condition Mental Status/LOC: Same as Preop Cardiovascular: Satisfactory Nausea/Vomiting: Absent Respiratory: Satisfactory Pain: Controlled Complications: Absent Post Op Complications Complications None Follow Up Care/Instructions Patient Instructions None needed. Anesthesia/Patient Condition Patient Condition Patient is doing well, no complaints, stable vital signs, no apparent adverse anesthesia problems. No complications reported per nursing. JENNIFER ULRICH CRNA Jun 04, 2022 11:26
[2022-06-04] MEDS ORDERED: MEPERIDINE (DEMEROL) INJ 50 MG/ML IVP ONE (11:30)
[2022-06-04] MEDS ORDERED: PROMETHAZINE INJ 25 MG/ML (PHENERGAN) AMP IVP ONE (11:30)
[2022-06-04] MEDS ORDERED: morphine INJ 10 MG/ML 1ML (SYR OR VIAL) IVP ONE (11:30)
[2022-06-04] MEDS ORDERED: KETOROLAC 30 MG/ML VIAL ONE (11:43)
[2022-06-04] MEDS ORDERED: morphine INJ 10 MG/ML 1ML (SYR OR VIAL) ONE (11:43)
--- NOTE | 2022-06-04 19:02 | OPERATIVE REPORT ---
DATE OF SERVICE: 06/04/2022 PREOPERATIVE DIAGNOSES: 1. A 21-year-old female with chronic pelvic pain. 2. Dyspareunia. 3. Complex right ovarian cyst seen on ultrasound. POSTOPERATIVE DIAGNOSES: 1. A 21-year-old female with chronic pelvic pain. 2. Dyspareunia. 3. Complex right ovarian cyst seen on ultrasound. PROCEDURES PERFORMED: Laparoscopic aspiration right ovarian cyst and chromotubation. SURGEON: Alejandra Santiago DO. ANESTHESIA: General. ESTIMATED BLOOD LOSS: Minimal. URINE OUTPUT: 50 mL clear at the end of the procedure. FLUIDS: 1000 mL of lactated Ringer's solution. FINDINGS: Grossly normal-appearing external female genitalia. Grossly normal appearing uterus, bilateral fallopian tubes, and ovaries with the right ovary being slightly enlarged with a simple cyst that is encountered and clear to yellowish-tinged fluid expressed from the cyst. SPECIMENS SENT: None. INDICATIONS FOR PROCEDURE: This 21-year-old female is a patient, who sought care in my office with a history of infertility, miscarriage x1 and this right ovarian cyst that had become enlarging, causing her pain and pain with intercourse. It was evaluated with ultrasound. She came to see me in my office as a second opinion from another local tube washer. After reviewing the information with the patient, we discussed if she is having discomfort and pain with right ovarian or adnexal mass measuring greater than 5 cm, we would proceed at her discretion with laparoscopic evaluation. The risks of the procedure were discussed with the patient in detail after all of her questions were answered. We discussed also performing chromotubation to ensure that tubal patency was not a concern with her not being able to become . She was agreeable to proceed with this and then after all the questions were answered, we obtained consent. DESCRIPTION OF PROCEDURE: The patient was taken to the operating room. Once in the operating room, general anesthesia was found to be adequate. She was placed in a dorsal lithotomy position, prepped and draped in a normal sterile fashion. A timeout was performed. A Perez catheter was placed using sterile technique. A weighted speculum was inserted in the patient's vagina. A right angled retractor was used to visualize the cervix, which was grasped at 12 o'clock position using a long Allis clamp. I then placed a Workable uterine manipulator to a depth of 8 cm. The point the balloon was in the uterus, I removed all the instruments from the patient's vagina, performed change of gloves, turned my attention to the abdomen, where subcostally at the midclavicular line, I introduced a Veress needle through the skin until a trocar placement was confirmed using a saline drop test. Opening pressure of 5 mmHg was noted. I proceeded with CO2 insufflation to maximum pressure of 15 mmHg, at which point, I made a 5 mm infraumbilical incision and introduced a 5 mm blunt laparoscopic trocar through the incision to ensure proper placement, it was confirmed using the laparoscope. There was no evidence of damage from the entry site. A brief scan of the upper abdominal anatomy appears to be grossly normal and there was no evidence of damage upon my Veress entry site. I removed the Veress needle at that point. I then had the patient placed in a steep Trendelenburg, where I was able to visualize all my pelvic anatomy as defined in my findings above. I placed a suprapubic trocar, it was a 5 mm trocar placed under direct visualization of laparoscope. Once this trocar was in place, I used a monopolar hook to open the cyst wall with energy and this was opened up approximately 2 cm to 3 cm draining all of the fluid that I can from this ovarian cyst, which appears slightly yellow in color. I then copiously irrigated the pelvis with normal saline. Once again, there was no bleeding noted from the opening of the cyst or no further damage and this returned the ovary back to its appropriate size. I then performed a chromotubation using methylene blue. A moderate amount of pressure has to be applied; however, the left tube is patent. The right tube does delay in filling. As it fills, there was also a perforation of the uterus from the dye as well, at which point, I decided to discontinue the chromotubation. I cauterized the small area, where the perforation occurs in the uterine fundus. I then copiously irrigated all of the excess methylene blue out of the pelvis. There was no active bleeding noted from any of my dissection planes. I then removed the suprapubic trocar under direct visualization of the laparoscope. A 10 mL of 0.25% Marcaine were then introduced through the infraumbilical trocar and then insufflation was removed from this trocar site as well, that trocar was removed. The skin was reapproximated using Dermabond. Band-Aids were placed over the incisions. The Perez catheter and Kronner uterine manipulator removed at the end of the procedure. The patient tolerated the procedure well and was taken to recovery area in stable condition. Lap and sponge counts were correct at the end of procedure and instrument counts were correct as well. Job ID: [id number] DocumentID: [id number] Dictated Date: 06/04/2022 11:51:58 Electrical Manufacturing Technician Date: 06/04/2022 19:00:00 Dictated By: ALEJANDRA SANTIAGO DO
== END 2022-06-04 13:13 | disposition home or self-care (01) ==
LOC: SDC 08:22
PROVIDERS: ATTEND Obstetrics & Gynecology
DX: N83.291 Other ovarian cyst, right side (principal); N94.10 Unspecified dyspareunia; Z87.891 Personal history of nicotine dependence
CPT/HCPCS: 36415; 84703; 85025; 86850; 86900; 86901; 87081

== ENCOUNTER 2022-07-02 19:40 | Emergency (ER) | payer MEDICAID ==
[~2022-07-02] VITALS: Ht 177.8 cm; Wt 66.7 kg
[~2022-07-02 19:40] MED LIST changes: +IBUP-1773 PO; +TRM50T PO
[2022-07-02] MEDS ORDERED: LACTATED RINGERS 1,000 ML IV SCH (20:00)
[2022-07-02 20:18] LABS: BILIRUBIN,URINE NEGATIVE (NEGATIVE); CLARITY,URINE CLEAR; COLOR,URINE YELLOW; GLUCOSE, URINE (UA) NEGATIVE (NEGATIVE); KETONES,URINE TRACE (NEGATIVE); LEUKOCYTE ESTERASE ,URINE NEGATIVE (NEGATIVE); NITRITE,URINE NEGATIVE (NEGATIVE); PROTEIN,URINE NEGATIVE (NEGATIVE)
[2022-07-02 20:34] LABS: BASOPHILS % (AUTO) 1 % (0-10); EOSINOPHILS # (AUTO) 0.1 10^3/uL (0.0-0.3); EOSINOPHILS % (AUTO) 1 % (0-10); HEMATOCRIT 35 % (35-52); HEMOGLOBIN 11.6 g/dL (11.5-16.0); LYMPHOCYTES # (AUTO) 2.7 10^3/uL (1.0-4.0); LYMPHOCYTES % (AUTO) 39 % (12-44); MEAN CORPUSCULAR HEMOGLOBIN 27 pg (25-34); MEAN CORPUSCULAR HGB CONC 33 g/dL (32-36); MEAN CORPUSCULAR VOLUME 82 fL (80-99); MEAN PLATELET VOLUME 11.2 fL (9.0-12.2); MONOCYTES # (AUTO) 0.6 10^3/uL (0.0-1.0); MONOCYTES % (AUTO) 8 % (0-12); NEUTROPHILS # (AUTO) 3.5 10^3/uL (1.8-7.8); NEUTROPHILS % (AUTO) 51 % (42-75); PLATELET COUNT 246 10^3/uL (130-400); WHITE BLOOD COUNT 6.9 10^3/uL (4.3-11.0)
[2022-07-02 20:41] LABS: ALBUMIN 4.3 GM/DL (3.2-4.5)
[2022-07-02 20:42] LABS: POTASSIUM 3.1 MMOL/L (3.6-5.0)
[2022-07-02 20:43] LABS: CALCIUM 9.4 MG/DL (8.5-10.1)
[2022-07-02 20:46] LABS: BILIRUBIN,TOTAL 0.4 MG/DL (0.1-1.0)
[2022-07-02 20:48] LABS: CREATININE SERUM 0.86 MG/DL (0.60-1.30)
[2022-07-02 21:01] LABS: BACTERIA,URINE TRACE /HPF; SQUAMOUS EPITHELIAL CELL,UR 25-50 /HPF; WBC,URINE 0-2 /HPF
[2022-07-02] MEDS ORDERED: POTA10CA43 PO (21:12)
--- NOTE | 2022-07-02 21:12 | ED General ---
General Chief Complaint: General Problems/Pain Stated Complaint: TROUBLE BREATHING Nursing Triage Note: PT TO ED IN BY POV WITH C/O MUSCLE TIGHTENING, FACE/MOUTH/HAND NUMBNESS AND TINGLING. 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 ON THE DRIVE HOME, PT BEGAN FEELING THE MUSCLES IN HER ARMS AND LEGS KATYA, FOLLOWED BY NUMBNESS AND TINGLING IN HER FACE, MOUTH, AND HANDS. PT STATES "I CAN'T WALK," AND WAS ABLE TO AMB FROM THE WC TO THE CART. Source of Information: Patient, Family Exam Limitations: No Limitations History of Present Illness Date Seen by Provider: Jul 02, 2022 Allergies and Home Medications Allergies Coded Allergies: No Known Drug Allergies (Unverified , 06/01/22) Patient Home Medication List Alprazolam (Xanax) 0.25 Mg Tablet, 0.25 MG PO BID PRN for ANXIETY Prescribed by: DIONI KNIGHT on 04/10/212054 Ibuprofen (Ibuprofen) 600 Mg Tablet, 600 MG PO Q6H Prescribed by: ALEJANDRA SANTIAGO on 06/04/22 0907 Lactulose (Lactulose) 20 Gram/30 Ml Solution, 20 GM PO PRN, (Reported) Entered as Reported by: GRIS SEGOVIA on 06/01/22 0951 Pantoprazole Sodium (Protonix) 40 Mg Tablet.dr, 40 MG PO DAILY, (Reported) Entered as Reported by: GRIS SEGOVIA on 06/01/22 0949 Tramadol HCl (Tramadol HCl) 50 Mg Tablet, 100 MG PO TID PRN for PAIN-MODERATE (5-7) Prescribed by: ALEJANDRA SANTIAGO on 06/04/22 0908 Past Ytjmhbq-Fleiag-Udxtbs Hx Patient Social History Tobacco Use?: No Use of E-Cig and/or Vaping dev: Yes E-Cig or Vaping type used: Nicotine Use of E-Cig and/or Vaping Luis: Current Everyday User Substance use?: No Alcohol Use?: Yes Alcohol Frequency: Once in a while Pt feels they are or have been: No Immunizations Up To Date Tetanus Booster (TDap): Unknown PED Vaccines UTD: Yes Influenza Vaccine Up-to-Date: No; Not Current First/Initial COVID19 Vaccinat: 2020 Second COVID19 Vaccination Gerardo: 2020 Third COVID19 Vaccination Date: 2020 Seasonal Allergies Seasonal Allergies: Yes Past Medical History Surgery/Hospitalization HX: tonsil/sawyer., ACL, D&C December HIGH CHOLEST Surgeries: Yes (DENTAL/WISDOM TEETH; LEFT ACL REPAIR, D&C) Adenoidectomy, Ear Surgery, Orthopedic, Tonsillectomy Respiratory: No Currently Using CPAP: No Currently Using BIPAP: No Cardiac: Yes High Cholesterol Neurological: No Last Menstrual Period: Jun 16, 2022 Reproductive Disorders: No Female Reproductive Disorders: Ovarian Cyst Genitourinary: No Gastrointestinal: Yes Gastroesophageal Reflux, Chronic Constipation Musculoskeletal: Yes (LEFT ACL REPAIR) Endocrine: No HEENT: No Loss of Vision: Denies Hearing Impairment: Denies Cancer: No Psychosocial: Yes Anxiety Integumentary: No Blood Disorders: Yes (positive IVA screen) Family Medical History No Pertinent Family Hx, Heart Disease, Cancer, CAD Under 55 Years Old, DVT/PE, Diabetes Physical Exam Vital Signs Vital Signs - First Documented Capillary Refill : Less Than 3 Seconds Height, Weight, BMI Height: 5'9.00" Weight: 150lbs. 6.0oz. 68.595862up; 21.00 BMI Method:Stated Progress/Results/Core Measures Suspected Sepsis SIRS Temperature: Pulse: 117 Respiratory Rate: 26 Laboratory Tests 07/02/22 20:20: White Blood Count 6.9 Blood Pressure 121 /85 Mean: 97 Laboratory Tests 07/02/22 20:20: Creatinine 0.86, Platelet Count 246, Total Bilirubin 0.4 Results/Orders Lab Results Laboratory Tests Test 07/02/22 20:08 07/02/22 20:20 Range/Units Urine Color YELLOW Urine Clarity CLEAR Urine pH 6.0 5-9 Urine Specific [place] >=1.030 1.016-1.022 Urine Protein NEGATIVE NEGATIVE Urine Glucose (UA) NEGATIVE NEGATIVE Urine Ketones TRACE H NEGATIVE Urine Nitrite NEGATIVE NEGATIVE Urine Bilirubin NEGATIVE NEGATIVE Urine Urobilinogen 1.0 < = 1.0 MG/DL Urine Leukocyte Esterase NEGATIVE NEGATIVE Urine RBC (Auto) NEGATIVE NEGATIVE Urine RBC NONE /HPF Urine WBC 0-2 /HPF Urine Squamous Epithelial Cells 25-50 H /HPF Urine Crystals NONE /LPF Urine Bacteria TRACE /HPF Urine Casts NONE /LPF Urine Mucus MODERATE H /LPF Urine Culture Indicated NO White Blood Count 6.9 4.3-11.0 10^3/uL Red Blood Count 4.26 3.80-5.11 10^6/uL Hemoglobin 11.6 11.5-16.0 g/dL Hematocrit 35 35-52 % Mean Corpuscular Volume 82 80-99 fL Mean Corpuscular Hemoglobin 27 25-34 pg Mean Corpuscular Hemoglobin Concent 33 32-36 g/dL Red Cell Distribution Width 13.6 10.0-14.5 % Platelet Count 246 130-400 10^3/uL Mean Platelet Volume 11.2 9.0-12.2 fL Immature Granulocyte % (Auto) 0 % Neutrophils (%) (Auto) 51 42-75 % Lymphocytes (%) (Auto) 39 12-44 % Monocytes (%) (Auto) 8 0-12 % Eosinophils (%) (Auto) 1 0-10 % Basophils (%) (Auto) 1 0-10 % Neutrophils # (Auto) 3.5 1.8-7.8 10^3/uL Lymphocytes # (Auto) 2.7 1.0-4.0 10^3/uL Monocytes # (Auto) 0.6 0.0-1.0 10^3/uL Eosinophils # (Auto) 0.1 0.0-0.3 10^3/uL Basophils # (Auto) 0.0 0.0-0.1 10^3/uL Immature Granulocyte # (Auto) 0.0 0.0-0.1 10^3/uL Sodium Level 139 135-145 MMOL/L Potassium Level 3.1 L 3.6-5.0 MMOL/L Chloride Level 112 H 98-107 MMOL/L Carbon Dioxide Level 14 L 21-32 MMOL/L Anion Gap 13 5-14 MMOL/L Blood Urea Nitrogen 11 7-18 MG/DL Creatinine 0.86 0.60-1.30 MG/DL Estimat Glomerular Filtration Rate 99 BUN/Creatinine Ratio 13 Glucose Level 93 70-105 MG/DL Calcium Level 9.4 8.5-10.1 MG/DL Corrected Calcium 9.2 8.5-10.1 MG/DL Total Bilirubin 0.4 0.1-1.0 MG/DL Aspartate Amino Transf (AST/SGOT) 14 5-34 U/L Alanine Aminotransferase (ALT/SGPT) 13 0-55 U/L Alkaline Phosphatase 46 40-136 U/L Total Creatine Kinase 142 29-168 U/L Total Protein 7.0 6.4-8.2 GM/DL Albumin 4.3 3.2-4.5 GM/DL My Orders Orders - SUZIE FORD APRN Urinalysis (07/02/22 19:55) Urine Bedside (07/02/22 19:55) Comprehensive Metabolic Panel (07/02/22 19:55) Creatine Kinase (07/02/22 19:55) Cbc With Automated Diff (07/02/22 19:55) Iv/Invasive Line Insertion .IV INSERT (07/02/22 19:55) Lactated Ringers (Lr 1000 Ml Iv Solution (07/02/22 20:00) Vital Signs/I&O 07/02/22 07/02/22 19:47 19:47 Temp 36.8 Pulse 117 Resp 26 B/P (MAP) 121/85 (97) Pulse Ox 100 O2 Delivery Room Air Room Air Capillary Refill : Less Than 3 Seconds Blood Pressure Mean: 97 Departure Impression Primary Impression: Paresthesia Additional Impressions: Anxiety reaction Hypokalemia Disposition: 01 HOME, SELF-CARE Condition: Stable Departure-Patient Inst. Decision time for Depature: 21:10 Referrals: JIMENA IRIZARRY MD (PCP/Family) Primary Care Physician Patient Instructions: Paresthesia (DC), Panic Attack ED Scripts Potassium Chloride (Potassium Chloride) 10 Meq Capsule.er 10 MEQ PO DAILY for 5 Days, #5 CAP 0 Refills Prov: SUZIE FORD APRN 07/02/22 SUZIE FORD APRN Jul 02, 2022 21:12
[2022-07-02 21:20] VITALS: BP 95/78
== END 2022-07-02 21:27 | disposition home or self-care (01) ==
LOC: EDUNIT# 19:40 → ER 19:42
DX: R20.2 Paresthesia of skin (principal); F41.1 Generalized anxiety disorder; E87.6 Hypokalemia; F17.200 Nicotine dependence, unspecified, uncomplicated
CPT/HCPCS: 36415; 80053; 81000; 82550; 84703; 85025; 99282

== ENCOUNTER 2022-10-03 06:32 | Outpatient (CLI) | payer MEDICAID ==
[~2022-10-03] VITALS: Ht 177.8 cm; Wt 58.5 kg
[~2022-10-03 06:32] MED LIST changes: +POTA10CA44 PO
== END 2022-10-03 10:30 | disposition home or self-care (01) ==
LOC: PREOP 06:32
PROVIDERS: ATTEND Surgery
DX: Z01.818 Encounter for other preprocedural examination (principal)

== ENCOUNTER 2022-10-10 11:32 | Day surgery (SDC) | payer MEDICAID ==
[2022-10-10] VITALS (8 sets, daily range): BP systolic 89–112; BP diastolic 51–79
[~2022-10-10] VITALS: Ht 177.8 cm; Wt 58.5 kg
[2022-10-10] MEDS ORDERED: LACTATED RINGERS 1,000 ML IV STA (11:37)
[2022-10-10] MEDS ORDERED: HURRICAINE EXT TUBE (BENZOCAINE) XX PRN (11:45)
[2022-10-10] MEDS ORDERED: LIDOCAINE JELLY 2% 6 ML SYRINGE MM PRN (11:45)
--- NOTE | 2022-10-10 11:48 | Progress Note-Pre Operative ---
Pre-Operative Progress Note Date of Available H&P: Oct 10, 2022 Date H&P Reviewed: Oct 10, 2022 Time H&P Reviewed: 11:30 History & Physical: No changes noted Pre-Operative Diagnosis: GERD, constipation, wt loss MEREDITH FERNANDEZ MD Oct 10, 2022 11:48
[2022-10-10] MEDS ORDERED: PANT40TA2 PO (11:49)
--- NOTE | 2022-10-10 11:49 | Discharge Inst-Surgical ---
D/C Lap Instructions-KIDO New, Converted, or Re-Newed RX: RX on Chart Follow Up Activity as tolerated High Fiber Diet 25g or more per day Avoid Alcohol, Caffeine, Spicy Winner and Acid foods. Drink 64 fluid oz or more of fluids per day. Symptoms to Report: Fever over 101 degree F, Nausea/Vomiting If any problems/questions: Contact your physician or go to Emergency Room MEREDITH FERNANDEZ MD Oct 10, 2022 11:49
[2022-10-10] MEDS ORDERED: ONDANSETRON 4 MG/2 ML (SDV) Z0FRAN IVP PRN (12:00)
[2022-10-10] MEDS ORDERED: ONDANSETRON 4 MG (ZOFRAN) ORAL DISSOLVE TAB PO PRN (12:00)
[2022-10-10] MEDS ORDERED: PROPOFOL INJECTION 50 ML IV ONE (12:40)
[2022-10-10] MEDS ORDERED: MIDAZOLAM 2 MG/2 ML (VERSED) VIAL ONE (12:40)
[2022-10-10] MEDS ORDERED: LIDOCAINE JELLY 2% 6 ML SYRINGE ONE (12:49)
[2022-10-10] MEDS ORDERED: proPOfol 200 MG/20 ML (DIPRIVAN) VIAL IV ONE ×2 (13:16→13:30)
--- NOTE | 2022-10-10 13:54 | Progress Note-Post Operative ---
Post-Operative Progess Note Surgeon (s)/[employer] (s) Surgeon MEREDITH FERNANDEZ MD [employer]: none Pre-Operative Diagnosis GERD, constipation, wt loss Post-Operative Diagnosis reflux esophagitis(grade B), small HH(1.5cm), moderate gastritis. Long redundant colon. Procedure & Operative Findings Date of Procedure 10/10/22 Procedure Performed/Findings EGD with bx. colonoscopy Anesthesia Type mac Estimated Blood Loss Estimated blood loss (mL): minimal Specimens/Packing Specimens Removed ge jxn, antrum MEREDITH FERNANDEZ MD Oct 10, 2022 13:54
--- NOTE | 2022-10-10 14:56 | Anesthesia-General Post-Op ---
MAC Patient Condition Mental Status/LOC: Same as Preop Cardiovascular: Satisfactory Nausea/Vomiting: Absent Respiratory: Satisfactory Pain: Controlled Complications: Absent Post Op Complications Complications None Follow Up Care/Instructions Patient Instructions None needed. Anesthesiology Discharge Order Discharge Order Patient is doing well, no complaints, stable vital signs, no apparent adverse anesthesia problems. No complications reported per nursing. YONIS BRAR CRNA Oct 10, 2022 14:56
--- NOTE | 2022-10-10 23:13 | OPERATIVE REPORT ---
DATE OF SERVICE: 10/10/2022 ATTENDING PRIMARY CARE PHYSICIAN: Kayleen Peterson MD PREOPERATIVE DIAGNOSES: Gastroesophageal reflux disease, weight loss, severe constipation. POSTOPERATIVE DIAGNOSES: Reflux esophagitis, Hunt grade B; small hiatal hernia 1.5 cm in size, moderate gastritis, no distal obstructions. Redundant colon. PROCEDURE: EGD with biopsy, colonoscopy. SURGEON: Meredith Fernandez MD ANESTHESIA: Monitored anesthesia care. ESTIMATED BLOOD LOSS: Minimal. FINDINGS: Reflux esophagitis, Hunt grade B; small hiatal hernia 1.5 cm in size, moderate gastritis, no distal obstructions. Redundant colon. DISPOSITION: The patient tolerated the procedure well. INDICATIONS: The patient is a 22-year-old female who was referred over to us for issues pertaining to gastroesophageal reflux disease, severe chronic constipation as well as weight loss. She states that she does have some reflux with epigastric burning sensation as well as crampy pain after usually after eating meals and it does not matter what she eats. She states otherwise she eats normal volumes of food. She has had a significant history of chronic constipation, most of her life and at times will only have a bowel movement at the longest once every three to four weeks; however, more recently, she has one bowel movement now approximately 1-2 weeks. DESCRIPTION OF PROCEDURE: The patient was brought to the endoscopy suite and laid in the left lateral decubitus position. After adequate pain, sedative medications and monitored anesthesia care, the mouthpiece was applied. The endoscope was then placed into the mouth, visualizing the pharynx and hypopharyngeal region. Vocal cords, epiglottis and vallecula identified and appeared to be normal. Endoscope was then gently intubated into the esophageal opening and esophagus insufflated. The endoscope was then advanced through the first, second and third portions of esophagus. At the level of the GE junction, a reflux esophagitis, Hunt grade B identified. There were no ulcers or strictures identified in this region. A biopsy was taken of the GE junction with forceps with visualization of good hemostasis. The endoscope was then advanced in the stomach. The endoscope retroflexed visualizing a small hiatal hernia approximately 1.5 cm in size. There was a moderate severity gastritis. No formal ulcers, polyps, or any neoplasms. A biopsy was taken of the antrum to rule out H. pylori with visualization of good hemostasis. The endoscope was then advanced through the pylorus and first and second portion of the duodenum, which was normal and no distal obstructions. The endoscope was then slowly withdrawn while taking a second look and suctioning of residual air with no additional findings. A digital rectal examination was performed. No significant hemorrhoids identified, slightly patulous anal sphincter tone. No palpable masses. The endoscope was then intubated into the anus, rectum gently insufflated. The endoscope was then advanced through the valves of Castellanos of the rectum with no polyps or any neoplasms identified. We then proceeded through the sigmoid colon where no diverticulosis identified. The endoscope was then advanced through the remainder of the descending, transverse and ascending colon to the cecum. There were no polyps or any neoplasms identified. There were a lot of loops within the colonoscope during the process, likely consistent with a long redundant colon and part of the causative agent of chronic constipation. The endoscope was then slowly withdrawn while taking second look and suctioning of residual air with no additional findings. The patient tolerated the procedure well. We will recommend the necessary lifestyle and dietary accommodation including small and more frequent meals, avoidance of eating at night as well as head elevation while lying supine. She also needs to proceed with moderation of alcoholic beverages, caffeinated beverages as well as spicy, greasy and acidic foods. We will also start her on Protonix 40 mg daily. There is also the possibility of the gallbladder etiology and we will also proceed with outpatient workup including ultrasound and possible HIDA scan. We will also highly recommend a high-fiber diet with addition of a fiber supplement, which are equal or exceed 30 grams daily or titrated to the point where she has a bowel movement once a day, which is soft in consistency. If she does this in a proactive manner. This should avoid the issues with the chronic constipation and the abdominal distention and crampy pain associated with this. If she is asymptomatic, she does not need another colonoscopy until age 45. Job ID: [id number] DocumentID: [id number] Dictated Date: 10/10/2022 13:50:19 Development Executive Date: 10/10/2022 23:11:00 Dictated By: MEREDITH FERNANDEZ MD
== END 2022-10-10 14:52 | disposition home or self-care (01) ==
LOC: ENDO 11:32
PROVIDERS: ATTEND Surgery
DX: K21.00 Gastro-esophageal reflux disease with esophagitis, without bleeding (principal); K29.70 Gastritis, unspecified, without bleeding; K59.09 Other constipation; K63.89 Other specified diseases of intestine; K44.9 Diaphragmatic hernia without obstruction or gangrene; R63.4 Abnormal weight loss
CPT/HCPCS: 84703

== ENCOUNTER → 2022-11-05 | Outpatient (CLI) | payer MEDICAID ==
--- NOTE | 2022-11-05 18:37 | Diagnostic Imaging Report ---
PROCEDURE: US Thyroid. TECHNIQUE: Multiple real-time grayscale images were obtained of the thyroid in various projections. INDICATION: Unintentional weight loss. Right lobe of thyroid measures 5.2 x 1.3 x 1.5 cm and the left lobe measures 5.3 x 1.2 x 1.7 cm. Isthmus is 3 mm in thickness. Both lobes are diffusely heterogeneous with numerous areas of hypoechogenicity. No discrete dominant thyroid mass is identified. IMPRESSION: Markedly heterogeneous thyroid without evidence of a dominant mass. Dictated by: Dictated on workstation # [id number]
== END ==
LOC: RAD 15:15
PROVIDERS: ATTEND Nurse Practitioner Family
DX: E07.89 Other specified disorders of thyroid (principal); R63.4 Abnormal weight loss
CPT/HCPCS: 76536

== ENCOUNTER → 2022-11-22 | Outpatient (CLI) | payer MEDICAID ==
[~2022-11-22] MED LIST changes: +CATHETER FLUSH 10 ML SYR IVP PRN
--- NOTE | 2022-11-22 11:00 | Diagnostic Imaging Report ---
PROCEDURE: US Gallbladder. TECHNIQUE: Multiple real-time grayscale images were obtained over the right upper quadrant in various projections. INDICATION: Right upper quadrant pain Liver parenchyma is homogeneous with normal echotexture. The portal vein is patent with hepatopetal flow. The gallbladder is clear with no stones or wall thickening. The common duct is not dilated. The pancreas is normal. Aorta and IVC are normal. Right kidney measures 9.6 cm in length and appears normal. There is no ascites. IMPRESSION: Unremarkable right upper quadrant ultrasound. Dictated by: Dictated on workstation # [id number]
--- NOTE | 2022-11-22 14:57 | Diagnostic Imaging Report ---
INDICATION: Right upper quadrant pain EXAMINATION: HIDA scan 11/22/2022 FINDINGS: Uneventful administration of 5.16 mm of technetium 99m Choletec intravenously administered. There is prompt homogeneous uptake throughout the liver with the gallbladder and small bowel seen within less than 45 minutes. Eventual administration of 8 ounces of Ensure administered orally with continued imaging performed. Ejection fraction is calculated at 32.1%. IMPRESSION: 1. No obstructive process. 2. Low ejection fraction suggesting gallbladder dyskinesia or chronic cholecystitis. Correlate with patient's symptoms. Dictated by: Dictated on workstation # [id number]
== END ==
LOC: RAD 08:00
PROVIDERS: ATTEND Surgery
DX: R10.11 Right upper quadrant pain (principal); R11.2 Nausea with vomiting, unspecified
CPT/HCPCS: 76705; 78227

== ENCOUNTER 2022-11-28 05:44 | Outpatient (CLI) | payer MEDICAID ==
[~2022-11-28] VITALS: Ht 177.8 cm; Wt 59.1 kg
[~2022-11-28 05:44] MED LIST changes: -CATHETER FLUSH 10 ML SYR IVP PRN
== END 2022-11-28 14:15 | disposition home or self-care (01) ==
LOC: PREOP 05:44
PROVIDERS: ATTEND Surgery
DX: Z01.818 Encounter for other preprocedural examination (principal)

== ENCOUNTER 2022-12-06 09:45 | Day surgery (SDC) | payer MEDICAID ==
--- NOTE | 2022-11-29 10:43 | HISTORY AND PHYSICAL ---
This is for procedure date 12/06/2022. ATTENDING PRIMARY CARE PHYSICIAN: Kayleen Peterson MD. HISTORY OF PRESENT ILLNESS: The patient is a 22-year-old female who has had issues with epigastric burning sensation as well as severe constipation and weight loss. She underwent an EGD and colonoscopy on 10/10/2022 and was found to have reflux esophagitis, [place] grade B small hiatal hernia, 1.5 cm in size and a moderate gastritis with no distal obstructions. She did have a long redundant colon, which is a normal anatomic variant of the colon. There were no polyps identified. She was started on PPI acid reducers after the procedure. She was then seen in the office approximately a month ago and reports continued symptoms with early satiety, abdominal bloating and acid indigestion type of symptoms. She reports that this was usually after meals. It was felt that this most likely represented a gallbladder etiology. She did undergo a gallbladder ultrasound, which was negative. She then underwent a HIDA scan, which did show a low gallbladder, ejection fraction of 32%, consistent with biliary dyskinesia. MEDICAL HISTORY: Depression. SURGICAL HISTORY: Tonsillectomy, wisdom teeth extraction, ACL repair. ALLERGIES: NO KNOWN ALLERGIES. MEDICATIONS: Lexapro, Protonix 40 mg. SOCIAL HISTORY: Negative for tobacco, smoke; rare for alcohol. FAMILY HISTORY: Father, hypertension, myocardial infarction. Mother, hypertension, DVT. VITAL SIGNS: Blood pressure is 100/60. Current weight 127 pounds at 5 feet 10 inches. REVIEW OF SYSTEMS: This is a well-nourished female in no acute distress. She is not experiencing any shortness of breath or difficulty breathing. No chest pain, palpitations or diaphoresis. She does report occasional episodes of nausea, but no vomiting. She denies any diarrhea, but does report history of constipation. She also reports abdominal bloating as well as early satiety with occasional epigastric to right upper quadrant abdominal pain. No red blood per rectum. No dark tarry stools. No fever or chills. No recent inadvertent weight loss. All other review of systems negative. PHYSICAL EXAM: CHEST: Clear. Good breath sounds bilaterally. HEART: Regular, no murmurs. EXTREMITIES: No lower extremity edema. Negative Homans sign. HEENT: No scleral icterus. No cervical lymphadenopathy. ABDOMEN: Soft, nondistended. There is some mild tenderness and discomfort with deep palpation in the right upper abdominal quadrant. SKIN: Warm, dry and pink. NEUROLOGIC: Awake, alert and oriented x3. ASSESSMENT AND PLAN: A 22-year-old female with symptomatic biliary dyskinesia. At this time, the risks and benefits of the procedure as well as the procedure and home care instructions were explained to the patient. She is in full understanding and would like to proceed with scheduling for a laparoscopic cholecystectomy, which we will proceed with. Job ID: [id number] DocumentID: [id number] Dictated Date: 11/29/2022 08:34:49 Buyers' Agent Date: 11/29/2022 10:03:00 Dictated By: DONTAE SOLORZANO APRN
[~2022-12-06] VITALS: Ht 177.8 cm; Wt 59.1 kg
[2022-12-06] VITALS (9 sets, daily range): BP systolic 100–116; BP diastolic 63–82
[2022-12-06] MEDS ORDERED: HYDR-3817 PO (09:53)
--- NOTE | 2022-12-06 09:53 | Discharge Inst-Surgical ---
D/C Lap Instructions-KIDO Reconcile Patient Problems Problems Reviewed?: Yes New, Converted, or Re-Newed RX: RX on Chart Follow Up Appt in 2 weeks Activity as tolerated No driving for 24 hours No driving while on pain medications Incentive Spirometry use every 2 hours while awake Regular Diet Symptoms to Report: Fever over 101 degree F, Nausea/Vomiting Infection Signs and Symptoms to report: Increased redness, Foul odor of wound, Increased drainage Bathing instructions: May shower Operative Area Clean/Dry; Keep incision clean/dry If any problems/questions: Contact your physician or go to Emergency Room DONTAE SOLORZANO APRN Dec 06, 2022 09:53
[2022-12-06] MEDS ORDERED: BUP/EPI 0.5% 1:200,000 (SENSORCAINE) 30 ML VIAL ONE (09:54)
--- NOTE | 2022-12-06 09:55 | Progress Note-Pre Operative ---
Pre-Operative Progress Note Date H&P Reviewed: Dec 06, 2022 Time H&P Reviewed: 09:55 History & Physical: H&P Reviewed, Patient Examed, No changes noted Pre-Operative Diagnosis: Biliary Dyskinesia DONTAE SOLORZANO FLORIST MANAGER Dec 06, 2022 09:55
[2022-12-06] MEDS ORDERED: ONDANSETRON 4 MG/2 ML (SDV) Z0FRAN IVP PRN ×2 (10:00→11:45)
[2022-12-06] MEDS ORDERED: ACETAMINOPHEN 325 MG TABLET PO PRN (10:00)
[2022-12-06] MEDS ORDERED: morphine INJ 10 MG/ML 1ML (SYR OR VIAL) IVP PRN (10:00)
[2022-12-06] MEDS ORDERED: HYDROcodone/APAP 5 MG/325 MG (LORTAB) TAB PO ONE (10:00)
[2022-12-06] MEDS ORDERED: ceFAZolin INJECTION 1,000 MG in NS (IVPB) 50 ML IV ONE (10:00)
[2022-12-06] MEDS ORDERED: fentaNYL INJ 100 MCG/2 ML AMP ONE (10:10)
[2022-12-06] MEDS ORDERED: proPOfol 200 MG/20 ML (DIPRIVAN) VIAL IV ONE (10:10)
[2022-12-06] MEDS ORDERED: ONDANSETRON 4 MG/2 ML (SDV) Z0FRAN ONE (10:10)
[2022-12-06] MEDS ORDERED: SEVOFLURANE (ULTANE) 15 ML INHAL SOLN ONE (10:10)
[2022-12-06] MEDS ORDERED: LIDOCAINE PF 2% 5 ML (XYLOCAINE) VIAL ONE (10:10)
[2022-12-06] MEDS ORDERED: MIDAZOLAM 2 MG/2 ML (VERSED) VIAL ONE (10:11)
[2022-12-06] MEDS: LACTATED RINGERS 1,000 ML IV PRN ×2 (10:19→11:51)
[2022-12-06] MEDS ORDERED: TRM50T PO (10:36)
[2022-12-06] MEDS ORDERED: NEOSTIGMINE 3 MG/3 ML VIAL ONE (11:27)
[2022-12-06] MEDS ORDERED: GLYCOPYRROLATE 0.2 MG/ML (ROBINUL) 2 ML VIAL ONE (11:27)
[2022-12-06] MEDS ORDERED: ROCURONIUM 50 MG/5 ML (ZEMURON) VIAL IV ONE (11:28)
[2022-12-06] MEDS ORDERED: ATROPINE INJ 0.4 MG/ML SDV ONE (11:30)
--- NOTE | 2022-12-06 11:38 | Progress Note-Post Operative ---
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
[2022-12-06] MEDS ORDERED: fentaNYL INJ 100 MCG/2 ML AMP IVP ONE (11:45)
[2022-12-06] MEDS ORDERED: morphine INJ 10 MG/ML 1ML (SYR OR VIAL) IVP ONE (11:45)
[2022-12-06] MEDS ORDERED: MEPERIDINE (DEMEROL) INJ 50 MG/ML IVP ONE (11:45)
--- NOTE | 2022-12-06 11:45 | Anesthesia-General Post-Op ---
General Patient Condition Mental Status/LOC: Same as Preop Cardiovascular: Satisfactory Nausea/Vomiting: Absent Respiratory: Satisfactory Pain: Controlled Complications: Absent Post Op Complications Complications None Follow Up Care/Instructions Patient Instructions None needed. Anesthesia/Patient Condition Patient Condition Patient is doing well, no complaints, stable vital signs, no apparent adverse anesthesia problems. No complications reported per nursing. HUI DOBSON COLD MEAT CHEF Dec 06, 2022 11:45
--- NOTE | 2022-12-06 18:59 | OPERATIVE REPORT ---
DATE OF SERVICE: 12/06/2022 ATTENDING PRIMARY CARE PHYSICIAN: Kayleen Peterson MD PREOPERATIVE DIAGNOSES: Symptomatic biliary dyskinesia and weight loss. POSTOPERATIVE DIAGNOSES: Symptomatic biliary dyskinesia and weight loss. PROCEDURE: Laparoscopic cholecystectomy. SURGEON: Meredith Fernandez MD BROADLOOM WEAVER: Sunny Patel APRN ANESTHESIA: General endotracheal. ESTIMATED BLOOD LOSS: Minimal. FINDINGS: Symptomatic biliary dyskinesia and weight loss. DISPOSITION: The patient tolerated the procedure well. INDICATIONS: The patient is a 22-year-old female who has had issues with epigastric burning sensation, severe constipation as well as weight loss. She underwent an EGD and colonoscopy on 10/10/2022 was found to have reflux esophagitis, [place] grade B, small hiatal hernia, 1.5 cm in size as well as moderate gastritis and no distal obstructions. She did have a long redundant colon; however, this was normal anatomic variant of the colon. She was placed on PPI acid reducers and recommended to proceed with the necessary lifestyle and dietary accommodations. She continued to have symptoms of early satiety, abdominal bloating and acid indigestion type of symptoms. We felt that this may likely the gallbladder and underwent an ultrasound, which was negative; however, HIDA scan was performed, which did show a low ejection fraction of 32% and reproduction of symptoms with the Kinevac analogue consistent with symptomatic biliary dyskinesia. DESCRIPTION OF PROCEDURE: The patient was brought to the operating room, laid supine on the table. After adequate IV pain and sedative medications and general endotracheal intubation, the abdomen was prepped and draped in standard surgical fashion. A 0.5% Marcaine with epinephrine was then used to anesthetize the overlying skin in the left upper abdominal quadrant and a transverse skin incision made. 0-silk suture applied to the medial aspect of the incision for retraction and a Veress needle inserted with a low opening pressure of 0 mmHg pressure. The Veress needle removed and a 5 mm XL trocar placed followed by a 5 mm 45-degree angle laparoscope visualized the peritoneal cavity. A 4-quadrant abdominal exploration was performed. There was slight gallbladder distention, no gallbladder wall thickening. Under direct visualization, we then proceeded to place a supraumbilical 10 mm port after the skin and peritoneal lining were anesthetized using 0.5% Marcaine with epinephrine and a transverse skin incision made using a #15 blade. In a similar manner, a right upper abdominal quadrant 5 mm port was placed. The patient was then placed in reverse Trendelenburg position as well as plane right side up, left side down. The fundus of the gallbladder was then retracted anteriorly and superiorly. The hepatoduodenal ligament was then dissected using blunt dissection as well as electrocautery using the hook instrument as well as a [place] dissector. The entire critical view of safety was identified including the triangle of Calot as well as the cystic duct and artery as the only 2 structures going into the gallbladder as well as the cystic plate behind the proximal gallbladder. A timeout was then taken and the cystic duct and artery were then clipped proximally and distally and cut with EndoShears. The gallbladder was then dissected off of the liver bed using cautery on the hook instrument with visualization of good hemostasis as well as no leaking ducts of Luschka. The gallbladder was then removed through the 10 mm port site using an EndoCatch bag. The 10 mm port site fascia and peritoneum were then closed under direct visualization using a Fermin-Mercy device and 0 Vicryl suture. The abdomen was desufflated and remaining ports removed. All skin incisions were closed using 4-0 Monocryl running subcuticular sutures. Wounds were then cleaned and covered with Dermabond. The patient tolerated the procedure well. We will start IV normal pain medication as well as a clear liquid diet. Once she is tolerating clears, has good pain control with oral pain medications, ambulating well, we will discharge her home where she will be instructed to do no heavy lifting or exertion for the next 2 weeks. Job ID: [id number] DocumentID: [id number] Dictated Date: 12/06/2022 11:43:51 Sign Board Erector Date: 12/06/2022 18:57:00 Dictated By: MEREDITH FERNANDEZ MD [facility]
== END 2022-12-06 14:09 | disposition home or self-care (01) ==
LOC: SDC 09:45
PROVIDERS: ATTEND Surgery
DX: K82.8 Other specified diseases of gallbladder (principal); K81.1 Chronic cholecystitis; R63.4 Abnormal weight loss; K21.00 Gastro-esophageal reflux disease with esophagitis, without bleeding; F17.290 Nicotine dependence, other tobacco product, uncomplicated; Z79.899 Other long term (current) drug therapy; Z68.1 Body mass index [BMI] 19.9 or less, adult
CPT/HCPCS: 87081

== ENCOUNTER → 2023-01-04 | Outpatient (CLI) | payer MEDICAID ==
[~2023-01-04] MED LIST changes: +HYDR-3817 PO; -POTA10CA44 PO; +POTA10CA84 PO
--- NOTE | 2023-01-04 14:12 | Diagnostic Imaging Report ---
Gastric Emptying Scintigraphy Radiopharmaceutical: 1.05 mCi Tc-99m sulfur colloid (cooked together with 120 gm scrambled egg substitute). History: Reflux. Findings: A routine solid-phase gastric emptying scintigraphy examination was performed. Anterior and posterior abdominal images were obtained at 0, 60, 120, 180 and 240 minutes after ingestion of the standardized radiolabeled solid meal. Geometric mean analysis was utilized to calculate a gastric emptying percentage at each of these time-points. Both visual analysis and quantitative data analysis of the images show a normal time-course of gastric emptying. Approximate percentage of residual ingested contents at each time point (corrected for decay) is as follows: 60 min: 73 120 min: 31 180 min: 22 240 min: 1 A gastric retention of greater than 10 percent of the meal at 4 hours is considered diagnostic of a significantly delayed gastric emptying, based on the normative data of a reference population utilizing this standardized technique. Therefore, the current examination indicates a normal gastric emptying in this patient. Impression: Normal solid-phase gastric emptying scintigraphy. Dictated by: Dictated on workstation # [id number]
== END ==
LOC: CARD 07:00
PROVIDERS: ATTEND Surgery
DX: K21.9 Gastro-esophageal reflux disease without esophagitis (principal)
CPT/HCPCS: 78264

== ENCOUNTER 2023-02-19 14:56 | Outpatient (RCR) | payer MEDICAID | END 2023-02-21 | disposition home or self-care (01) | PROVIDERS: ATTEND Physician Assistant | DX: M41.9 Scoliosis, unspecified (principal); M54.81 Occipital neuralgia ==

== ENCOUNTER 2023-03-29 15:00 | Emergency (ER) | payer MEDICAID ==
[~2023-03-29] VITALS: Ht 177.8 cm; Wt 54.5 kg
[2023-03-29] MEDS ORDERED: NS IV 1000 ML 1,000 ML IV STA (15:17)
[2023-03-29] MEDS ORDERED: PROCHLORPERAZINE INJ 10 MG/2ML VIAL IV ONE (15:30)
[2023-03-29] MEDS ORDERED: KETOROLAC INJ 15 MG/ML VIAL IVP ONE (15:30)
[2023-03-29] MEDS ORDERED: diphenhydrAMINE INJ 50 MG/ML VIAL IVP ONE (15:30)
[2023-03-29 15:47] LABS: BASOPHILS # (AUTO) 0.1 10^3/uL (0.0-0.1); BASOPHILS % (AUTO) 1 % (0-10); EOSINOPHILS # (AUTO) 0.1 10^3/uL (0.0-0.3); EOSINOPHILS % (AUTO) 2 % (0-10); HEMATOCRIT 41 % (35-52); HEMOGLOBIN 13.8 g/dL (11.5-16.0); LYMPHOCYTES % (AUTO) 39 % (12-44); MEAN CORPUSCULAR HEMOGLOBIN 30 pg (25-34); MEAN CORPUSCULAR HGB CONC 34 g/dL (32-36); MEAN CORPUSCULAR VOLUME 87 fL (80-99); MEAN PLATELET VOLUME 10.7 fL (9.0-12.2); MONOCYTES # (AUTO) 0.4 10^3/uL (0.0-1.0); MONOCYTES % (AUTO) 9 % (0-12); NEUTROPHILS # (AUTO) 2.5 10^3/uL (1.8-7.8); NEUTROPHILS % (AUTO) 49 % (42-75); PLATELET COUNT 228 10^3/uL (130-400); WHITE BLOOD COUNT 5.1 10^3/uL (4.3-11.0)
[2023-03-29 15:56] LABS: POTASSIUM 3.9 MMOL/L (3.6-5.0)
[2023-03-29 15:58] LABS: CALCIUM 9.2 MG/DL (8.5-10.1)
[2023-03-29 16:02] LABS: CREATININE SERUM 0.78 MG/DL (0.60-1.30)
--- NOTE | 2023-03-29 16:04 | Diagnostic Imaging Report ---
PROCEDURE: CT head without contrast. TECHNIQUE: Multiple contiguous axial images were obtained through the brain without the use of intravenous contrast. Auto Exposure Controls were utilized during the CT exam to meet ALARA standards for radiation dose reduction. INDICATION: Recurrent severe headache. COMPARISON: CT head without contrast 03/19/2022. FINDINGS: No intracranial hemorrhage, mass effect, hydrocephalus, or extra-axial fluid collections. No CT evidence of a territorial infarction. The osseous structures are intact. The visualized paranasal sinuses and mastoids are clear. IMPRESSION: No acute intracranial CT findings. Dictated by: Dictated on workstation # [id number]
--- NOTE | 2023-03-29 16:25 | ED Headache ---
General Chief Complaint: Head/Cervical Problems Stated Complaint: MIGRAINE Nursing Triage Note: MIGRANE X2 DAYS. HAS NOT BEEN ABLE TO GET RELIEF WITH OTC MEDS. LAST APAP DOSE WAS 03/28/23 IN THE EVENING. PAIN IS THE RIGHT SIDE OF NECK RADIATING UP TO THE FRONTAL LOBE ON THE RIGHT SIDE. HX OF BULGING DISKS IN HER CERVICAL SPINE WITH NERVE DAMAGE ON THE RIGHT SIDE. Source: patient Exam Limitations: no limitations History of Present Illness Date Seen by Provider: Mar 29, 2023 Time Seen by Provider: 15:24 Initial Comments 22-year-old female presents for what she describes as a migraine LOVE. It started approx 2 days ago. She has had several similar LOVE's over the last several months. No real migraine history prior to that. She has taken tylenol without much relief. No fever. Allergies and Home Medications Allergies Coded Allergies: No Known Drug Allergies (Unverified , 11/28/22) Patient Home Medication List Home Medication List Reviewed: Yes Ketorolac Tromethamine (Ketorolac Tromethamine) 10 Mg Tablet, 10 MG PO TID Prescribed by: BA HEATH MD on 03/29/231628 Last Action: New Order Pantoprazole Sodium (Protonix) 40 Mg Tablet.dr, 40 MG PO DAILY Prescribed by: MEREDITH FERNANDEZ on 10/10/22 1149 Sumatriptan Succinate (Sumatriptan Succinate) 50 Mg Tablet, 50 MG PO ONCE Prescribed by: BA HEATH MD on 03/29/231628 Last Action: New Order Tramadol HCl (Tramadol HCl) 50 Mg Tablet, 50 MG PO Q4H PRN for PAIN Prescribed by: Vicenta Domínguez on 12/06/22 1036 Review of Systems Review of Systems Constitutional: see HPI Past Sjusuhx-Qiisuw-Nnulig Hx Patient Social History Tobacco Use?: No Substance use?: No Pt feels they are or have been: No Immunizations Up To Date Tetanus Booster (TDap): Unknown PED Vaccines UTD: Yes Influenza Vaccine Up-to-Date: No; Not Current First/Initial COVID19 Vaccinat: 2021 Second COVID19 Vaccination Gerardo: 2021 Third COVID19 Vaccination Date: 2021 Seasonal Allergies Seasonal Allergies: No Past Medical History Surgery/Hospitalization HX: tonsil/sawyer., ACL, D&C DECEMBER FIRST HIGH CHOLEST Surgeries: Yes (DENTAL/WISDOM TEETH; LEFT ACL REPAIR, D&C, DXLS) Adenoidectomy, Ear Surgery, Orthopedic, Tonsillectomy Respiratory: No Currently Using CPAP: No Currently Using BIPAP: No Cardiac: Yes High Cholesterol Neurological: No Reproductive Disorders: No Female Reproductive Disorders: Ovarian Cyst Genitourinary: No Gastrointestinal: Yes Gastroesophageal Reflux, Chronic Constipation, Hiatal Hernia, Gall Bladder Di sease Musculoskeletal: Yes (HX LEFT ACL REPAIR) Scoliosis Endocrine: No HEENT: No Loss of Vision: Denies Hearing Impairment: Denies Cancer: No Psychosocial: Yes Anxiety Integumentary: No Blood Disorders: Yes (positive IVA screen) Family Medical History No Pertinent Family Hx, Heart Disease, Cancer, CAD Under 55 Years Old, DVT/PE, Diabetes Physical Exam Vital Signs Vital Signs - First Documented 03/29/23 15:05 Temp 37.1 Pulse 81 Resp 16 B/P (MAP) 117/87 (97) Pulse Ox 99 O2 Delivery Room Air Capillary Refill : Less Than 3 Seconds Height, Weight, BMI Height: 5'9.00" Weight: 150lbs. 6.0oz. 68.177516qg; 17.00 BMI Method:Stated General Appearance: WD/WN, no apparent distress HEENT: PERRL/EOMI, normal ENT inspection, pharynx normal Cardiovascular: regular rate, rhythm, no murmur Respiratory: chest non-tender, lungs clear, normal breath sounds, no respiratory distress, no accessory muscle use Gastrointestinal: normal bowel sounds, soft Psychiatric: alert, oriented x 3 Crainal Nerves: PERRL Motor/Sensory: no motor deficit, no sensory deficit Skin: normal color, warm/dry Progress/Results/Core Measures Results/Orders Lab Results Laboratory Tests Test 03/29/23 15:39 Range/Units White Blood Count 5.1 4.3-11.0 10^3/uL Red Blood Count 4.68 3.80-5.11 10^6/uL Hemoglobin 13.8 11.5-16.0 g/dL Hematocrit 41 35-52 % Mean Corpuscular Volume 87 80-99 fL Mean Corpuscular Hemoglobin 30 25-34 pg Mean Corpuscular Hemoglobin Concent 34 32-36 g/dL Red Cell Distribution Width 12.5 10.0-14.5 % Platelet Count 228 130-400 10^3/uL Mean Platelet Volume 10.7 9.0-12.2 fL Immature Granulocyte % (Auto) 0 % Neutrophils (%) (Auto) 49 42-75 % Lymphocytes (%) (Auto) 39 12-44 % Monocytes (%) (Auto) 9 0-12 % Eosinophils (%) (Auto) 2 0-10 % Basophils (%) (Auto) 1 0-10 % Neutrophils # (Auto) 2.5 1.8-7.8 10^3/uL Lymphocytes # (Auto) 2.0 1.0-4.0 10^3/uL Monocytes # (Auto) 0.4 0.0-1.0 10^3/uL Eosinophils # (Auto) 0.1 0.0-0.3 10^3/uL Basophils # (Auto) 0.1 0.0-0.1 10^3/uL Immature Granulocyte # (Auto) 0.0 0.0-0.1 10^3/uL Sodium Level 140 135-145 MMOL/L Potassium Level 3.9 3.6-5.0 MMOL/L Chloride Level 110 H 98-107 MMOL/L Carbon Dioxide Level 19 L 21-32 MMOL/L Anion Gap 11 5-14 MMOL/L Blood Urea Nitrogen 10 7-18 MG/DL Creatinine 0.78 0.60-1.30 MG/DL Estimat Glomerular Filtration Rate 110 BUN/Creatinine Ratio 13 Glucose Level 85 70-105 MG/DL Calcium Level 9.2 8.5-10.1 MG/DL Serum Test, Qualitative NEGATIVE NEGATIVE My Orders Orders - KUMARBA Bach DO Hcg,Qualitative Serum (03/29/23 15:16) Iv/Invasive Line Insertion .IV INSERT (03/29/23 15:16) Cbc And Automated Diff (03/29/23 15:16) Ct Head Wo (03/29/23 15:16) Basic Metabolic Panel (03/29/23 15:16) Ns Iv 1000 Ml (Ns Iv 1000 Ml) (03/29/23 15:17) Ketorolac Injection (Ketorolac Injection (03/29/23 15:30) Prochlorperazine Injection (Prochlorpera (03/29/23 15:30) Diphenhydramine Injection (Diphenhydram (03/29/23 15:30) Medications Given in ED Current Medications Medications Dose Ordered Sig/Pamela Route Start Time Stop Time Status Last Admin Dose Admin Diphenhydramine HCl 50 mg ONCE ONCE IVP 03/29/23 15:30 03/29/23 15:31 DC 03/29/23 15:37 50 MG Ketorolac Tromethamine 15 mg ONCE ONCE IVP 03/29/23 15:30 03/29/23 15:31 DC 03/29/23 15:37 15 MG Prochlorperazine Edisylate 10 mg ONCE ONCE IV 03/29/23 15:30 03/29/23 15:31 DC 03/29/23 15:37 10 MG Vital Signs/I&O 03/29/23 03/29/23 15:05 16:38 Temp 37.1 Pulse 81 Resp 16 B/P (MAP) 117/87 (97) 117/84 Pulse Ox 99 O2 Delivery Room Air Blood Pressure Mean: 97 Departure Communication (Admissions) Pt is stable, neuro intact. She has no history of LOVE prior to this so ordered workup including CT, cbc (r/o anemia), hcg. All are negative. She is feeling better after provided NS, toradol, benadryl, compazine. Discharged with PO toradol for current LOVE. Given sumatriptan as abortive med for future LOVE. Impression Primary Impression: Migraine Qualified Codes: G43.909 - Migraine, unspecified, not intractable, without status migrainosus Disposition: 01 HOME, SELF-CARE Condition: Stable Departure-Patient Inst. Referrals: JIMENA IRIZARRY MD (PCP/Family) Primary Care Physician Patient Instructions: Migraines in adults Add. Discharge Instructions: Take ibuprofen and Tylenol as. I recommend you add 50 mg of Benadryl every 6 hours as needed as well for any continuing headaches. Increase your fluids at home. Return to the emergency department for any severe concerns. Follow with your primary doctor should your headaches become more consistent. All discharge instructions reviewed with patient and/or family. Voiced understanding. Scripts Sumatriptan Succinate (Sumatriptan Succinate) 50 Mg Tablet 50 MG PO ONCE for Headache for 5 Days, #5 TAB Prov: BA HEATH DO 03/29/23 Ketorolac Tromethamine (Ketorolac Tromethamine) 10 Mg Tablet 10 MG PO TID for Pain for 3 Days, #9 TAB Prov: BA HEATH DO 03/29/23 BA HEATH DO Mar 29, 2023 16:25
[2023-03-29] MEDS ORDERED: SUMA50TA2 PO (16:29)
[2023-03-29] MEDS ORDERED: KETO10TA PO (16:29)
[2023-03-29 16:38] VITALS: BP 117/84
== END 2023-03-29 16:38 | disposition home or self-care (01) ==
LOC: EDUNIT# 15:00 → ER 15:02
DX: G43.909 Migraine, unspecified, not intractable, without status migrainosus (principal)
CPT/HCPCS: 36415; 70450; 80048; 84703; 85025

== ENCOUNTER → 2023-04-12 | Outpatient (CLI) | payer MEDICAID ==
[~2023-04-12] MED LIST changes: +KETO10TA PO; +SUMA50TA2 PO
--- NOTE | 2023-04-15 10:12 | Diagnostic Imaging Report ---
PROCEDURE: Pelvic comp/transvaginal sonogram. TECHNIQUE: Complete transabdominal and transvaginal pelvic ultrasound was performed. In addition, limited pelvic Doppler was performed. INDICATION: Excessive and frequent menses. Uterus measures 5.9 x 2.4 x 3.9 cm. Endometrium is 2 mm in thickness. No myometrial mass is identified. Right ovary measures 4.0 x 1.9 x 2.8 cm and the left ovary measures 3.3 x 2.0 x 2.4 cm. Both ovaries demonstrate multiple follicles. There is blood flow to both ovaries. No adnexal mass or free fluid is detected. IMPRESSION: Unremarkable transabdominal and transvaginal pelvic ultrasound with limited pelvic Doppler. Dictated by: Dictated on workstation # [id number]
== END ==
LOC: RAD 09:30
PROVIDERS: ATTEND Obstetrics & Gynecology
DX: N92.1 Excessive and frequent menstruation with irregular cycle (principal)
CPT/HCPCS: 76830; 76856

== ENCOUNTER 2023-04-15 13:00 | Outpatient (RCR) | payer MEDICAID | END 2023-04-23 | disposition home or self-care (01) | PROVIDERS: ATTEND Physician Assistant | DX: M41.9 Scoliosis, unspecified (principal); M54.81 Occipital neuralgia ==